=== PATIENT | female | born 1990 | race African-American/Black ===

== ENCOUNTER 2017-06-11 01:53 | Inpatient (IN) ==
[2017-06-11] MEDS ORDERED: Ipratropium/Albuterol Neb 3 ML IH ONE (02:06)
[2017-06-11] MEDS ORDERED: predniSONE 20 MG TABLET PO ONE (02:06)
[2017-06-11] MEDS ORDERED: 0.9 % Sodium Chloride 1,000 ML IVC ONE (02:07)
--- NOTE | 2017-06-11 02:11 | Emergency Department Note ---
Disposition Clinical Impression: Acute respiratory distress Asthma with exacerbation Qualifiers: Asthma severity: unspecified severity Asthma persistence: unspecified Qualified Code(s): J45.901 - Unspecified asthma with (acute) exacerbation Pneumonia Qualifiers: Pneumonia type: due to unspecified organism Laterality: right Lung location: unspecified part of lung Qualified Code(s): J18.9 - Pneumonia, unspecified organism Disposition: Admitted As Inpatient Condition: Undetermined Forms: ED Satisfaction Letter Time of Disposition: 04:09 Asthma HPI - General Chief Complaint: ED Asthma Stated Complaint: "Asthma Attack" Time Seen by Provider: 06/11/17 02:00 Source: patient, family Mode of arrival: EMS Limitations: no limitations Nursing Notes Reviewed: Yes Vital Signs Reviewed: Yes - History of Present Illness HPI Narrative: 26-year-old female with extensive history of asthma arrives to [facility] emergency department complaining of difficulty breathing. The patient states that she has been intubated for asthma in the past and has been in the ICU. The patient states that she has had upper respiratory infection cough from her daughter a few days ago. She states that she has acutely worsened over the course of the past 24 hours. The patient states she has used 2 breathing treatments prior to arrival. In addition EMS was called to her house and it was noted that the patient received 2 albuterol breathing treatments prior to arrival. She is tachypneic in the room and wheezing on auscultation. She is mildly hypoxic on room air with an O2 saturation of 89-91% . The patient admits to a large amount of back pain from coughing and her tachypnea over the course of the past few days. She denies any other complaints at this time. Pt Subjective Complaint: "asthma attack", shortness of breath Onset (ago): hour(s) (4) Severity: moderate, similar to prior, worse than usual Context: recent URI Associated symptoms: Reports: none Asthma History: history of frequent attacks, previously intubated Treatments Prior to Arrival: inhaled bronchodilator - Related Data Current Asthma Therapy: inhaled bronchodilator Home Medications Medication Instructions Recorded Confirmed Albuterol Sulfate [Albuterol 2 puff IH Q4-6H PRN 04/05/17 04/05/17 Inhaler] Beclomethasone Diprop 40mcg [QVAR 2 puff IH BID 04/05/17 04/05/17 40 mcg] Previous Rx's Medication Instructions Recorded Doxycycline 100 mg PO BID #14 capsule 04/08/17 Montelukast [Singulair] 10 mg PO HS #30 tablet 04/08/17 Nicotine Patch [Nicoderm] 14 mg TD Q24H patch.td24 04/08/17 PredniSONE [Deltasone] 40 mg PO DAILY #10 tablet 04/08/17 Allergies Allergy/AdvReac Type Severity Reaction Status Date / Time No Known Allergies Allergy Verified 06/11/17 02:00 All systems ED: reviewed and negative except as stated. Constitutional: Denies: fever, chills, weakness ENT ED: Denies: congestion Cardiovascular: Denies: chest pain Respiratory: Reports: dyspnea, wheezes Gastrointestinal: Denies: abdominal pain Genitourinary: Denies: urgency, dysuria Musculoskeletal: Reports: back pain. 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 - Social History Smoking Status: Current some day smoker Alcohol use: Reports: none Drug use: Reports: none Physical Exam - General Limitations: no limitations General appearance: alert, in distress (Respiratory distress) - Head Head exam: atraumatic, normocephalic, normal inspection - Eye Eye exam: Present: normal appearance, PERRL, EOMI - ENT ENT exam: normal exam, normal oropharynx, mucous membranes moist - Neck Neck exam: Present: normal inspection, full ROM, trachea midline - Chest Chest inspection: Present: normal inspection, symmetric chest wall rise - Respiratory Respiratory exam: Present: respiratory distress, wheezes, accessory muscle use - Expanded Respiratory Exam Location: wheezes: Left, Right, Upper, Lower - Cardiovascular Cardiovascular exam: Present: normal rhythm, tachycardia, normal heart sounds - Abdominal Exam Abdominal exam: Present: soft, Non-Tender. Absent: tenderness, distention, guarding, rebound, rigidity - Extremities Exam Extremities exam: Present: normal inspection, full ROM. Absent: tenderness, pedal edema Course Vital Signs Temperature 99.2 F 06/11/17 01:57 Pulse Rate 122 06/11/17 01:57 Respiratory Rate 18 06/11/17 01:57 Blood Pressure 135/90 06/11/17 01:57 O2 Sat by Pulse Oximetry 96 06/11/17 01:57 Temperature 99.2 F 06/11/17 01:57 Pulse Rate 122 06/11/17 03:23 Respiratory Rate 36 06/11/17 03:23 Blood Pressure 139/98 06/11/17 03:23 O2 Sat by Pulse Oximetry 95 06/11/17 03:23 Oxygen Delivery Oxygen Delivery Nasal Cannula Asthma - MDM Narrative Medical decision making narrative: Patient's workup here in the emergency department demonstrates a right perihilar infiltrate consistent with early pneumonia. The patient was in respiratory distress upon arrival but received 3 DuoNeb, steroids, magnesium the patient is resting comfortably at this time. The patient will be admitted to the hospitalist for further care and workup. Patient was accepted by Dr. Guadalupe. She is resting comfortably at this time. She is wearing nasal cannula oxygen and has been doing well on this. This is primarily for her own comfort. She is having no hypoxia at this time. - Medical Records Medical records reviewed: Yes I reviewed the patient's medical records. - Lab Data Lab results reviewed: Yes I reviewed the patient's lab results. Result diagrams: 06/11/17 03:17 06/11/17 03:17 Lab Results 06/11/17 06/11/17 Range/Units 03:17 03:17 WBC 17.1 H (4.3-11.1) K/mcL RBC 4.13 (3.82-4.97) M/mcL Hgb 13.1 (11.5-15.4) g/dL Hct 39.6 (35.3-44.9) % MCV 95.9 (83.0-100.0) fL MCH 31.7 (28.0-33.3) pg MCHC 33.1 (31.6-35.5) g/dL RDW 13.2 (11.5-14.5) % Plt Count 289 (140-400) K/mcL MPV 9.4 (9.4-12.4) fL Immature Gran % 0.2 (0-4) % Seg Neutrophils % 83.0 % Lymphocytes % 7.2 % Monocytes % 4.8 % Eosinophils % 4.3 % Basophils % 0.5 % Neutrophils # 14.2 H (1.6-8.9) K/mcL Lymphocytes # 1.2 (0.6-4.6) K/mcL Monocytes # 0.8 (0.0-1.3) K/mcL Eosinophils # 0.7 H (0.0-0.6) K/mcL Basophils # 0.1 (0.0-0.2) K/mcL Immature Plt Fraction 2.4 (1.1-6.1) % Sodium 136 (136-145) mEq/L Potassium 3.4 L (3.5-4.5) mEq/L Chloride 104 (98-109) mEq/L Carbon Dioxide 23 (19-29) mEq/L BUN 7 (7-20) mg/dL Creatinine 0.92 (0.57-1.11) mg/dL Est GFR ( Amer) > 60 (> 60) Est GFR (Non-Af Amer) > 60 (> 60) BUN/Creatinine Ratio 8 (6-26) Glucose 94 (70-99) mg/dL Calculated Osmolality 280 (280-300) Calcium 8.8 (8.6-10.8) mg/dL - Radiology Data Radiology results reviewed: Yes I reviewed the patient's radiology results.
[2017-06-11] MEDS ORDERED: cefTRIAXone 1,000 MG in Water for inj. (sterile) 10 ML IVP ONE (02:47)
--- NOTE | 2017-06-11 03:04 | Emergency Department Note ---
START Narrative - START START: I examined this patient and my medical decision-making was reviewed with the Resident Physician. I agree with the documented findings, disposition and treatment plan as described except to the extent set forth below. 26 year old kasi with HX of asthma and has been intubated in the past for acute respiratory distres presents ot the ED with complaints of shortness of breath and chest pain and states that she feels as though her asthma has been excerbated. She recieved 2 albuterol treatments in route with audible wheezing on exam and a inital pulse of 89%. WE have placed her on 2LNC and will admit to medicine seconday to early start of pnuemonia.
[2017-06-11 03:24] LABS: Basophils # 0.1 K/mcL (0.0-0.2); Basophils % 0.5 %; Eosinophils # 0.7 K/mcL (0.0-0.6); Eosinophils % 4.3 %; Hematocrit 39.6 % (35.3-44.9); Hemoglobin 13.1 g/dL (11.5-15.4); Immature Granulocytes % 0.2 % (0-4); Immature Platelets 2.4 % (1.1-6.1); Lymphocytes # 1.2 K/mcL (0.6-4.6); Lymphocytes % 7.2 %; Mean Corpuscular HGB Conc 33.1 g/dL (31.6-35.5); Mean Corpuscular Hemoglobin 31.7 pg (28.0-33.3); Mean Corpuscular Volume 95.9 fL (83.0-100.0); Mean Platelet Volume 9.4 fL (9.4-12.4); Monocytes # 0.8 K/mcL (0.0-1.3); Monocytes % 4.8 %; Neutrophils # 14.2 K/mcL (1.6-8.9); Platelet Count 289 K/mcL (140-400); Red Blood Count 4.13 M/mcL (3.82-4.97); Red Cell Distribution Width 13.2 % (11.5-14.5)
[2017-06-11 03:38] LABS: BUN/Creatinine Ratio 8 (6-26); Blood Urea Nitrogen 7 mg/dL (7-20); Calcium 8.8 mg/dL (8.6-10.8); Carbon Dioxide 23 mEq/L (19-29); Chloride 104 mEq/L (98-109); Glucose 94 mg/dL (70-99); Osmolality,Calculated 280 (280-300); Potassium 3.4 mEq/L (3.5-4.5); Sodium 136 mEq/L (136-145); eGFR For African Americans > 60 (> 60); eGFR For Non-African Americans > 60 (> 60)
--- NOTE | 2017-06-11 04:32 | Internal Med History&Physical ---
<Miah Trejo - Last Filed: 06/11/17 05:45> Date of Encounter: 06/11/17 Time of Encounter: 04:30 Assessment and Plan (1) Acute asthma exacerbation Current visit: Yes Status: Acute History of exacerbation requiring intubation 2 years ago Clinically has significantly improved Likely etiology is pneumonia vs smoking vs environmental Patient now sating in low 90s, mildly tachypneic, HR down to 90s Duoneb q4 MARTIN Albuterol q2 PRN Solu-Medrol 80mg q8hrs Continuous cardiac and pulse ox monitoring Maintenance IVF We will continue to closely monitor throughout the day Qualifiers: Asthma severity: unspecified severity Asthma persistence: unspecified Qualified Code(s): J45.901 - Unspecified asthma with (acute) exacerbation (2) Pneumonia Current visit: Yes Status: Acute CXR shows hyperinflation with right perihilar infiltrate WBC 17.1 IV abx - Rocephin and Zithromax Sputum culture ordered See above Qualifiers: Pneumonia type: due to unspecified organism Laterality: right Lung location: middle lobe of lung Qualified Code(s): J18.1 - Lobar pneumonia, unspecified organism (3) Leukocytosis Current visit: Yes Status: Acute WBC 17.1, Likely from pneumonia and reactive from stress On Abx, See above Will recheck later today Qualifiers: Leukocytosis type: unspecified Qualified Code(s): D72.829 - Elevated white blood cell count, unspecified (4) Hypokalemia Current visit: Yes Status: Acute K 3.4. Likely d/t use of bronchodilators Given PO potassium one time dose Started on IVF with K Rechecking BMP today (5) Tobacco abuse Current visit: No Status: Chronic Smokes 0.5 PPD. Ordered nicotine patch and counseled on the importance of smoking cessation (6) DVT prophylaxis Current visit: No Status: Acute Heparin 5000 units BID Internal Medicine - H&P: HPI Chief complaint: shortness of breath Admitted From: Home Plans for Post Hospital Care: Home History of present illness: Ms. Gaitan is a very pleasant 26 year old female with a past medical history of asthma requiring recurrent hospitalizations who presents to the [facility] Emergency Department with a chief complaint of shortness of breath. She states that she has been having experiencing upper respiratory type symptoms with clear productive cough that has worsened over the last day. There is associated chest discomfort with back pain from her constant coughing. At home, she uses albuterol, singular and duoneb treatments as needed. She was started on Symbicort in March but has run out medication for "several weeks" now. Prior to her coming to the ED, she received two breathing treatments. On arrival to the ED, she is very tachypneic, hypoxic with labored breathing in tripod position. She was given Prednisone, duoneb x3, mag, IVF and one dose of cetriaxone. Initial labs demonstrate WBC 17.1, K 3.4 and Cr 0.92. CXR demonstrates hyperinflation of the lung camacho with right perihilar infiltrate consistent with early pneumonia.On evaluation, she is somnolent without labored breathing on NC O2 - sat 95%. She states that she smokes 0.5 PPD and has occasional EtOH. Previous heroine use. Most recent hospitalization was back in March where she was admitted for asthma exacerbation and discharged on 04/10/17. More importantly, EMR review shows asthma exacerbation requiring intubation and ICU stay during a 2015 hospitalization. We will admit patient and offer close monitoring and further intervention. Past Med Surg Social Fam HX - Past Medical History Medical history: asthma Psychiatric history: anxiety - Past Surgical History Surgical History: other - Social History Smoking Status: Current some day smoker Smokeless Tobacco Status: No Alcohol use: none Drug use: none - Family History Father Adopted: No Living Status: Still Living Hx Family Cardiac Disorders: No Hx Family Respiratory Disorders: Yes (ASTHMA) Hx Family Cancer: No Hx Family GI Disorders: No Hx Family Endocrine Disorder: No Hx Family Neuromuscular Disorders: No Hx Family Neurologic Disorders: No Hx Family HEENT Disorders: No Hx Family Autoimmune Disorders: No Internal Medicine - H&P: Meds Albuterol Sulfate [Albuterol Inhaler] 2 puff IH Q4-6H PRN 04/05/17 [History] Beclomethasone Diprop 40mcg [QVAR 40 mcg] 2 puff IH BID 04/05/17 [History] Doxycycline 100 mg PO BID #14 capsule 04/08/17 [Rx] Montelukast [Singulair] 10 mg PO HS #30 tablet 04/08/17 [Rx] Nicotine Patch [Nicoderm] 14 mg TD Q24H patch.td24 04/08/17 [Rx] PredniSONE [Deltasone] 40 mg PO DAILY #10 tablet 04/08/17 [Rx] 3 Allergy/AdvReac Type Severity Reaction Status Date / Time No Known Allergies Allergy Verified 06/11/17 02:00 All Systems PM: A 10-system review of systems was performed and is negative for pertinent findings except as documented above in the HPI. - Constitutional Constitutional: no fever(s) - EENT Eyes: no change in vision - Cardiovascular Cardiovascular ROS IM: dyspnea, dyspnea on exertion, palpitations, no lightheadedness - Respiratory Respiratory: as per HPI, cough, dyspnea, dyspnea on exertion, pain on inspiration, pain with cough (chest and back) - Gastrointestinal Gastrointestinal: no abdominal pain, no constipation, no diarrhea - Genitourinary Genitourinary: no dysuria - Musculoskeletal Musculoskeletal ROS IM: back pain, muscle cramps - Integumentary Integumentary IM: no erythema - Neurological Neurological ROS: no dizziness, no headache(s) - Psychiatric Psychiatric: no anxiety - Constitutional Vitals: Temp Pulse Resp BP Pulse Ox 99.2 F 124 32 145/89 95 06/11/17 01:57 06/11/17 04:17 06/11/17 04:17 06/11/17 04:17 06/11/17 04:17 General appearance: Present: cooperative, A&O X 3, no acute distress, answers questions appropriately - Head Head exam: Present: atraumatic, normocephalic - Eye Eye exam: Present: EOMI, conjuntiva pink, sclera anicteric - ENT ENT exam: Present: mucous membranes moist - Neck Neck exam general surgery: Present: supple, trachea midline - Respiratory Respiratory exam: Present: wheezes (coarse, diffuse). Absent: accessory muscle use, chest wall tenderness, respiratory distress - Cardiovascular Cardiovascular exam: Present: +S1, +S2, tachycardia - GI/Abdominal GI/Abdominal exam: Present: normal bowel sounds, soft. Absent: tenderness - Rectal Rectal exam: Present: deferred - Extremities Exam Extremities exam: Present: warm. Absent: calf tenderness, cyanotic, tenderness - Neurological Exam Neurological exam: Present: alert, no focal deficits. Absent: speech deficit - Psychiatric Psychiatric exam: Present: normal affect, normal mood - Skin Skin exam: Absent: cyanosis Internal Med - H&P Results - Labs CBC & Chem 7: 06/11/17 03:17 06/11/17 03:17 <Henry Guadalupe - Last Filed: 06/11/17 06:19> Date of Encounter: 06/11/17 - Constitutional Constitutional: no chills, no fever(s), no night sweats - EENT Ears: no ear pain, no tinnitus Nose, mouth and throat: nasal congestion, nasal discharge, sinus pressure, no sore throat - Cardiovascular Cardiovascular ROS IM: dyspnea, dyspnea on exertion, no chest pain - Respiratory Respiratory: cough, dyspnea, dyspnea on exertion, pain with cough, no hemoptysis , no excessive phlegm production, no change in phlegm color - Gastrointestinal Gastrointestinal: no fecal incontinence - Genitourinary Genitourinary: no hematuria - Musculoskeletal Musculoskeletal ROS IM: back pain, no arthralgias - Integumentary Integumentary IM: no rash, no jaundice - Neurological Neurological ROS: no focal weakness, no frequent falls, no headache(s) - Psychiatric Psychiatric: no anxiety - Endocrine Endocrine IM: no polydipsia, no polyuria - Hematologic/Lymphatic Hematologic/Lymphatic: no lymphadenopathy - Allergic/Immunologic Allergic/Immunologic: wheezing, no uticaria, no GI upset with certain foods - Constitutional Vitals: Temp Pulse Resp BP Pulse Ox 98.9 F 119 26 145/89 91 06/11/17 05:08 06/11/17 05:08 06/11/17 05:08 06/11/17 05:08 06/11/17 05:08 General appearance: Present: cooperative, A&O X 3, no acute distress, answers questions appropriately Exam: patient with RR high teens/low twenties; no increased work of breathing now, resting comfortably. She reports feeling much better than initial presentation. - Head Head exam: Present: atraumatic, normal inspection - Eye Eye exam: Present: EOMI, PERRL. Absent: scleral icterus Pupils: Present: normal accommodation - ENT ENT exam: Present: normal exam - Neck Neck exam general surgery: Present: full ROM, supple. Absent: lymphadenopathy, tenderness - Respiratory Respiratory exam: Present: prolonged expiratory phase, rhonchi, wheezes. Absent : accessory muscle use, chest wall tenderness, rales, respiratory distress Additional comments: no respiratory distress now - Cardiovascular Cardiovascular exam: Present: RRR, +S1, +S2, tachycardia. Absent: diastolic murmur, systolic murmur - GI/Abdominal GI/Abdominal exam: Present: soft. Absent: hepatomegaly, splenomegaly, tenderness - Extremities Exam Extremities exam: Present: full ROM, normal capillary refill, warm, radial pulses palpable and symmetrical. Absent: joint swelling - Back Exam Back exam: Absent: CVA tenderness (L), CVA tenderness (R) - Neurological Exam Neurological exam: Present: alert, CN II-XII intact, oriented X3, no focal deficits - Psychiatric Psychiatric exam: Present: normal affect, normal mood - Skin Skin exam: Present: dry, warm. Absent: rash Internal Med - H&P Results - Labs CBC & Chem 7: 06/11/17 03:17 06/11/17 03:17 - Diagnostic Studies Chest x-ray Status: image reviewed by me (hyperinflated; right perihilar infiltrate noted) - Attending Attestation I discussed the patient AKIAK, PMH, ROS, lab data, and exam findings with Dr. Trejo. I then saw and examined patient independently as well. She, overall, feels much better than prior to her arrival. She started having symptoms roughly 24-30 hours ago. She has had ill contacts -- primarily her daughter. She also smokes about 1/2 PPD. We will treat her asthma aggressively with scheduled and PRN aerosols, IV steroids, and IV antibiotics for her pneumonia. Although she has elevated WBC and elevated HR and RR, she is not septic. She is well perfused. BP is stable. Her vitals are improving steadily since initial treatment for asthma exacerbation. We will watch her closely on telemetry and pulse oximetry. She needs to quit smoking and needs a PCP. She ran out of her meds and has not followed up. She continues to smoke, despite her asthma. Upon discharge, she will need referral for PCP, psychotherapist social worker, and probably pulmonary referral. Other than my above comments above and noted exam findings, I agree with Dr. Wright's assessment and plan.
[2017-06-11] MEDS ORDERED: Acetaminophen 325 MG TABLET PO PRN (05:14)
[2017-06-11] MEDS ORDERED: Naloxone 0.4 MG/ML INJ IVP PRN (05:14)
[2017-06-11] MEDS ORDERED: Albuterol 2.5 MG/3 ML NEBULIZER IH PRN (05:15)
[2017-06-11 05:36] LABS: Magnesium 2.6 mg/dL (1.6-2.6)
[2017-06-11] MEDS ORDERED: [UNRECOGNIZED DRUG - OTHER] IVC SCH (05:45)
[2017-06-11] MEDS: *HR* Heparin 5,000 UNIT/ML VIAL SQ SCH ×2 (05:51→18:24)
[2017-06-11] MEDS: Azithromycin 500 MG in D5% in Water 250 ML IVPB SCH (06:08)
[2017-06-11] MEDS: Ipratropium/Albuterol Neb 3 ML IH SCH ×6 (07:35→23:42)
[2017-06-11] MEDS: methylPREDNISolone 125 MG/2 ML VIAL IVP SCH ×3 (09:00→23:54)
[2017-06-11] MEDS: cefTRIAXone 1,000 MG in Water for inj. (sterile) 10 ML IVP SCH (09:01)
[2017-06-11] MEDS: Nicotine 14 MG PATCH.TD24 TD SCH (09:03)
[2017-06-11] MEDS: 0.9 % Sodium Chloride w KCl 20 MEQ/1,000 ML MLS IVC SCH ×2 (12:24→23:54)
[2017-06-11 12:33] LABS: BUN/Creatinine Ratio 8 (6-26); Blood Urea Nitrogen 7 mg/dL (7-20); Calcium 9.7 mg/dL (8.6-10.8); Carbon Dioxide 20 mEq/L (19-29); Chloride 108 mEq/L (98-109); Glucose 139 mg/dL (70-99); Osmolality,Calculated 282 (280-300); Potassium 4.3 mEq/L (3.5-4.5); Sodium 136 mEq/L (136-145); eGFR For African Americans > 60 (> 60); eGFR For Non-African Americans > 60 (> 60)
[2017-06-11 12:47] LABS: Basophils % 0.1 %; Eosinophils % 0.1 %; Hemoglobin 14.2 g/dL (11.5-15.4); Immature Granulocytes % 0.6 % (0-4); Immature Platelets 2.9 % (1.1-6.1); Lymphocytes # 0.6 K/mcL (0.6-4.6); Lymphocytes % 3.7 %; Mean Corpuscular HGB Conc 34.6 g/dL (31.6-35.5); Mean Corpuscular Volume 92.3 fL (83.0-100.0); Mean Platelet Volume 10.1 fL (9.4-12.4); Monocytes # 0.1 K/mcL (0.0-1.3); Monocytes % 0.5 %; Platelet Count 267 K/mcL (140-400); Red Blood Count 4.44 M/mcL (3.82-4.97); Red Cell Distribution Width 13.2 % (11.5-14.5)
[2017-06-11 12:48] LABS: Neutrophils # 14.5 K/mcL (1.6-8.9)
[2017-06-11 12:50] LABS: Platelet Clumps Few (Not Present); Platelet Estimate Normal (Normal)
--- NOTE | 2017-06-11 17:12 | Event Note ---
Date of Encounter: 06/11/17 Time of Encounter: 16:00 Patient is feeling better currently. She continues to have some wheezing and cough. We will continue treatment for asthma exacerbation with pneumonia. Continue current antibiotics. Continue bronchodilators. Continue steroids.
[2017-06-12] MEDS: Ipratropium/Albuterol Neb 3 ML IH SCH ×3 (04:16→09:07)
[2017-06-12] MEDS: Azithromycin 500 MG in D5% in Water 250 ML IVPB SCH (05:26)
[2017-06-12] MEDS: *HR* Heparin 5,000 UNIT/ML VIAL SQ SCH (05:32)
[2017-06-12] MEDS: methylPREDNISolone 125 MG/2 ML VIAL IVP SCH (08:19)
[2017-06-12] MEDS: Nicotine 14 MG PATCH.TD24 TD SCH (08:22)
[2017-06-12] MEDS: cefTRIAXone 1,000 MG in Water for inj. (sterile) 10 ML IVP SCH (08:22)
--- NOTE | 2017-06-12 10:55 | Discharge Summary ---
Date of Encounter: 06/12/17 Time of Encounter: 10:30 - Discharge Diagnosis (1) Acute asthma exacerbation Priority: Primary Status: Acute Qualifiers: Asthma severity: unspecified severity Asthma persistence: unspecified Qualified Code(s): J45.901 - Unspecified asthma with (acute) exacerbation (2) Hypokalemia Priority: Secondary Status: Acute (3) Pneumonia Priority: Secondary Status: Acute Qualifiers: Pneumonia type: due to unspecified organism Laterality: right Lung location: middle lobe of lung Qualified Code(s): J18.1 - Lobar pneumonia, unspecified organism (4) Tobacco abuse Priority: Secondary Status: Chronic (5) DVT prophylaxis Priority: Secondary Status: Acute - Discharge Medications Prescriptions: Albuterol Sulfate [Albuterol Inhaler] 2 puff IH Q4-6H PRN #1 inhaler PRN Reason: Shortness Of Breath Azithromycin [Zithromax] 500 mg PO DAILY #10 tablet Beclomethasone Diprop 40mcg [QVAR 40 mcg] 2 puff IH BID #1 inh Cefdinir [Omnicef] 300 mg PO BID #10 capsule predniSONE [PredniSONE] 40 mg PO DAILY #5 tablet Home Medications: Albuterol Sulfate [Albuterol Inhaler] 2 puff IH Q4-6H PRN #1 inhaler 06/12/17 [ Rx] Azithromycin [Zithromax] 500 mg PO DAILY #10 tablet 06/12/17 [Rx] Beclomethasone Diprop 40mcg [QVAR 40 mcg] 2 puff IH BID #1 inh 06/12/17 [Rx] Cefdinir [Omnicef] 300 mg PO BID #10 capsule 06/12/17 [Rx] predniSONE [PredniSONE] 40 mg PO DAILY #5 tablet 06/12/17 [Rx] Allergies/Adverse Reactions: 3 Allergy/AdvReac Type Severity Reaction Status Date / Time No Known Allergies Allergy Verified 06/11/17 02:00 Date of admission: 06/11/17 05:33 Primary care physician: PCP NONE Discharging clinician: Lesley Bear Anticipated date of discharge: 06/12/17 - Patient Status Disposition: Home, Self-Care Condition: Good Functional capacity at discharge: independent ambulation Overall status at discharge: patient is back to baseline - Discharge Instructions Instructions: Albuterol (By breathing), Beclomethasone (By breathing), Prednisone (By mouth), Azithromycin (By mouth), Cefdinir (By mouth), Asthma (DC) , Hypokalemia (DC), Pneumonia (DC) Follow Up With: Tabatha Eli DO [Resident] - 06/19/17 4:00 pm NONE,PCP [Primary Care Provider] - (F/u in residency clinic in 1 week) - Diet and Activity Activity: increase activity as tolerated Diet: low fat, low cholesterol, low salt diet Hospital course: Ms. Gaitan is a 26 year old female patient with a history of asthma who presented to ER with symptoms of acute asthma exacerbation. She was treated with bronchodilators and intravenous steroids. Chest x-ray also showed a right perihilar infiltrate concerning for early pneumonia. As such she was admitted here and treated with intravenous antibiotics. She has improved quickly with this treatment plan and is doing much better now. She is not requiring O2 supplementation and her lungs sound much better. She is eager to go home and is clinically stable to be discharged home today on oral antibiotics and short course of prednisone. She is advised to follow up with her PCP for further management of her asthma. I am giving her prescription for Qvar that she say she ran out of and has not been taking recently. She will also complete antibiotic treatment for her pneumonia with Omnicef and azithromycin. - Time Spent with Patient Total time spent providing and/or coordinating discharge services: Less than 30 minutes (25 min) - Constitutional Vitals: Temp Pulse Resp BP Pulse Ox 98.3 F 91 18 113/75 99 06/12/17 07:26 06/12/17 07:26 06/12/17 09:07 06/12/17 07:26 06/12/17 09:07 General appearance: Present: cooperative, A&O X 3, no acute distress, answers questions appropriately - Respiratory Respiratory exam: Present: CTAB. Absent: accessory muscle use, rales, rhonchi, wheezes - Cardiovascular Cardiovascular exam: Present: RRR, +S1, +S2. Absent: diastolic murmur, gallop, rubs, systolic murmur - GI/Abdominal GI/Abdominal exam: Present: normal bowel sounds, soft, no peritoneal signs. Absent: distended, tenderness - Extremities Exam Extremities exam: Present: warm, radial pulses palpable and symmetrical. Absent : calf tenderness, cyanotic, pedal edema
[2017-06-12 11:18] VITALS: BP 119/76
== END 2017-06-12 13:50 | disposition home or self-care (01) | DRG 141 ==
LOC: EMEROO 01:53 → 2NENU 01:53
PROVIDERS: ADMIT Pediatrics; ATTEND Internal Medicine

== ENCOUNTER 2017-06-21 05:46 | Observation (INO) ==
[2017-06-21] MEDS ORDERED: Ipratropium/Albuterol Neb 3 ML IH ONE (05:48)
[2017-06-21] MEDS ORDERED: methylPREDNISolone 125 MG/2 ML VIAL IVP ONE (05:48)
[2017-06-21] MEDS ORDERED: Albuterol Neb 7.5 MG, Sodium Chloride for inhalation 12 ML IH ONE (05:50)
[2017-06-21] MEDS ORDERED: Albuterol 2.5 MG/3 ML NEBULIZER ONE (05:57)
--- NOTE | 2017-06-21 06:13 | Emergency Department Note ---
Disposition Clinical Impression: Asthma exacerbation Qualifiers: Asthma severity: mild Asthma persistence: intermittent Qualified Code(s): J45.21 - Mild intermittent asthma with (acute) exacerbation Disposition: Admitted As Inpatient Condition: Good SOB HPI - General Chief Complaint: ED Shortness of Breath/Dyspnea Stated Complaint: difficulty in breathing Time Seen by Provider: 06/21/17 05:48 Source: EMS Nursing Notes Reviewed: Yes Vital Signs Reviewed: Yes - History of Present Illness Refer to notes from Dr. Esqueda and Dr. Calvillo for history of present illness, physical exam, medical decision-making and disposition. 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 - Social History Smoking Status: Current some day smoker Smokeless Tobacco Status: No Alcohol use: Reports: none Drug use: Reports: none Physical Exam - General General appearance: alert, in distress Course Vital Signs Temperature 98.0 F 06/21/17 05:47 Pulse Rate 114 06/21/17 05:47 Respiratory Rate 28 06/21/17 05:47 Blood Pressure 151/113 06/21/17 05:47 O2 Sat by Pulse Oximetry 99 06/21/17 05:47 Temperature 98.3 F 06/21/17 20:51 Pulse Rate 114 06/21/17 20:51 Respiratory Rate 18 06/21/17 20:51 Blood Pressure 127/75 06/21/17 20:51 O2 Sat by Pulse Oximetry 95 06/21/17 20:51 Oxygen Delivery Oxygen Delivery Room Air Shortness of Breath/Dyspnea - MDM Narrative Medical decision making narrative: Refer to the notes from Dr. Esqueda and Dr. Calvillo. - Lab Data Result diagrams: 06/21/17 06:05 06/21/17 06:05 Lab Results 06/21/17 06/21/17 06/21/17 Range/Units 06:05 06:05 06:05 WBC 13.8 H (4.3-11.1) K/mcL RBC 4.40 (3.82-4.97) M/mcL Hgb 14.0 (11.5-15.4) g/dL Hct 42.4 (35.3-44.9) % MCV 96.4 (83.0-100.0) fL MCH 31.8 (28.0-33.3) pg MCHC 33.0 (31.6-35.5) g/dL RDW 13.1 (11.5-14.5) % Plt Count 317 (140-400) K/mcL MPV 9.1 L (9.4-12.4) fL Immature Gran % 0.3 (0-4) % Seg Neutrophils % 65.5 % Lymphocytes % 15.9 % Monocytes % 6.2 % Eosinophils % 11.6 % Basophils % 0.5 % Neutrophils # 9.1 H (1.6-8.9) K/mcL Lymphocytes # 2.2 (0.6-4.6) K/mcL Monocytes # 0.9 (0.0-1.3) K/mcL Eosinophils # 1.6 H (0.0-0.6) K/mcL Basophils # 0.1 (0.0-0.2) K/mcL Sodium 138 (136-145) mEq/L Potassium 4.5 (3.5-4.5) mEq/L Chloride 105 (98-109) mEq/L Carbon Dioxide 23 (19-29) mEq/L BUN 8 (7-20) mg/dL Creatinine 0.84 (0.57-1.11) mg/dL Est GFR ( Amer) > 60 (> 60) Est GFR (Non-Af Amer) > 60 (> 60) BUN/Creatinine Ratio 10 (6-26) Glucose 102 H (70-99) mg/dL Calculated Osmolality 285 (280-300) Lactic Acid 0.6 (0.5-2.2) mmol/L Calcium 8.8 (8.6-10.8) mg/dL Troponin I (0-0.03) ng/mL B-Natriuretic Peptide (0-100) pg/mL 06/21/17 06/21/17 Range/Units 06:05 06:05 WBC (4.3-11.1) K/mcL RBC (3.82-4.97) M/mcL Hgb (11.5-15.4) g/dL Hct (35.3-44.9) % MCV (83.0-100.0) fL MCH (28.0-33.3) pg MCHC (31.6-35.5) g/dL RDW (11.5-14.5) % Plt Count (140-400) K/mcL MPV (9.4-12.4) fL Immature Gran % (0-4) % Seg Neutrophils % % Lymphocytes % % Monocytes % % Eosinophils % % Basophils % % Neutrophils # (1.6-8.9) K/mcL Lymphocytes # (0.6-4.6) K/mcL Monocytes # (0.0-1.3) K/mcL Eosinophils # (0.0-0.6) K/mcL Basophils # (0.0-0.2) K/mcL Sodium (136-145) mEq/L Potassium (3.5-4.5) mEq/L Chloride (98-109) mEq/L Carbon Dioxide (19-29) mEq/L BUN (7-20) mg/dL Creatinine (0.57-1.11) mg/dL Est GFR ( Amer) (> 60) Est GFR (Non-Af Amer) (> 60) BUN/Creatinine Ratio (6-26) Glucose (70-99) mg/dL Calculated Osmolality (280-300) Lactic Acid (0.5-2.2) mmol/L Calcium (8.6-10.8) mg/dL Troponin I 0.01 (0-0.03) ng/mL B-Natriuretic Peptide 56 (0-100) pg/mL - EKG Data EKG attestation: Yes I reviewed and interpreted this EKG. EKG results narrative: 5:51 Injury to the right 117 bpm, NJ interval 160 ms, QRS duration 70 ms, QT 294 ms, QTC 363 ms, normal axis. Sinus tachycardia with a mildly shortened NJ interval. There is no evidence of any ischemic ST changes on this electrocardiogram in comparison with a previous study performed on April 05, 2017. Attestation Statement - Attestation Attestation: I, Jayce Calvillo MD, personally evaluated this patient and discussed their management with the resident physician. I reviewed the resident's note and agree with the documented findings, medical decision making, and plan of care. Please refer to additional note from this visit.
[2017-06-21 06:16] LABS: Basophils # 0.1 K/mcL (0.0-0.2); Basophils % 0.5 %; Eosinophils # 1.6 K/mcL (0.0-0.6); Eosinophils % 11.6 %; Hematocrit 42.4 % (35.3-44.9); Immature Granulocytes % 0.3 % (0-4); Lymphocytes # 2.2 K/mcL (0.6-4.6); Lymphocytes % 15.9 %; Mean Corpuscular Hemoglobin 31.8 pg (28.0-33.3); Mean Corpuscular Volume 96.4 fL (83.0-100.0); Mean Platelet Volume 9.1 fL (9.4-12.4); Monocytes # 0.9 K/mcL (0.0-1.3); Monocytes % 6.2 %; Neutrophils # 9.1 K/mcL (1.6-8.9); Platelet Count 317 K/mcL (140-400); Red Cell Distribution Width 13.1 % (11.5-14.5); Segmented Neutrophils % 65.5 %
[2017-06-21 06:32] LABS: BUN/Creatinine Ratio 10 (6-26); Blood Urea Nitrogen 8 mg/dL (7-20); Calcium 8.8 mg/dL (8.6-10.8); Carbon Dioxide 23 mEq/L (19-29); Chloride 105 mEq/L (98-109); Glucose 102 mg/dL (70-99); Osmolality,Calculated 285 (280-300); Potassium 4.5 mEq/L (3.5-4.5); Sodium 138 mEq/L (136-145); eGFR For African Americans > 60 (> 60); eGFR For Non-African Americans > 60 (> 60)
--- NOTE | 2017-06-21 06:53 | Emergency Department Note ---
Disposition Clinical Impression: Asthma exacerbation Qualifiers: Asthma severity: mild Asthma persistence: intermittent Qualified Code(s): J45.21 - Mild intermittent asthma with (acute) exacerbation Disposition: Admitted As Inpatient Condition: Good SOB HPI - General Chief Complaint: ED Shortness of Breath/Dyspnea Stated Complaint: difficulty in breathing Time Seen by Provider: 06/21/17 05:48 Source: EMS Mode of arrival: ambulatory Limitations: no limitations Nursing Notes Reviewed: Yes Vital Signs Reviewed: Yes - History of Present Illness Pt presents for wheezing and respiratory distress that started last night. Initial history hard to get 2/2 distress. Pt responded after initial 3 duonebs with mild improvement in wheezing. Admitted with asthma exacerbation and early pneumonia with an increased white count. Patient was given antibiotics and breathing treatments. Patient improved in the hospital but was sent home with medications that she could not afford. The patient did not take any of these medications secondary to cost. Patient's symptoms did overall improved and resolved until this started yesterday. Symptoms started yesterday she was outside in the cold and a verbal argument. She was crying and then decided to smoke the first cigarette she has smoked since her last admission. She took her ipratropium but was out of all of her other meds including albuterol. Patient states that with her wheezing she had a cough but her cough has been nonproductive in nature. At this point the patient has improved significantly over the last hour since her arrival. The patient will be further observed in the emergency department and possibly admitted. She has been signed out to Dr. Lee and Dr. Nash. 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 ), wheezes - Cardiovascular Cardiovascular exam: Present: normal rhythm, tachycardia - Abdominal Exam Abdominal exam: Present: soft, Non-Tender - Extremities Exam Extremities exam: Present: normal inspection. Absent: tenderness - Back Exam Back exam: Present: normal inspection - Neurological Exam Neurological exam: Present: alert, oriented X3, CN II-XII intact - Psychiatric Psychiatric exam: Present: normal affect, normal mood - Skin Skin exam: Present: warm, dry, intact Course - Consultations Consultation #1: Discussed with Dr. Garay. Patient accepted for admission. Vital Signs Temperature 98.0 F 06/21/17 05:47 Pulse Rate 114 06/21/17 05:47 Respiratory Rate 28 06/21/17 05:47 Blood Pressure 151/113 06/21/17 05:47 O2 Sat by Pulse Oximetry 99 06/21/17 05:47 Temperature 98.3 F 06/21/17 20:51 Pulse Rate 114 06/21/17 20:51 Respiratory Rate 18 06/21/17 20:51 Blood Pressure 127/75 06/21/17 20:51 O2 Sat by Pulse Oximetry 95 06/21/17 20:51 Oxygen Delivery Oxygen Delivery Room Air Shortness of Breath/Dyspnea - Lab Data Result diagrams: 06/21/17 06:05 06/21/17 06:05 Lab Results 06/21/17 06/21/17 06/21/17 Range/Units 06:05 06:05 06:05 WBC 13.8 H (4.3-11.1) K/mcL RBC 4.40 (3.82-4.97) M/mcL Hgb 14.0 (11.5-15.4) g/dL Hct 42.4 (35.3-44.9) % MCV 96.4 (83.0-100.0) fL MCH 31.8 (28.0-33.3) pg MCHC 33.0 (31.6-35.5) g/dL RDW 13.1 (11.5-14.5) % Plt Count 317 (140-400) K/mcL MPV 9.1 L (9.4-12.4) fL Immature Gran % 0.3 (0-4) % Seg Neutrophils % 65.5 % Lymphocytes % 15.9 % Monocytes % 6.2 % Eosinophils % 11.6 % Basophils % 0.5 % Neutrophils # 9.1 H (1.6-8.9) K/mcL Lymphocytes # 2.2 (0.6-4.6) K/mcL Monocytes # 0.9 (0.0-1.3) K/mcL Eosinophils # 1.6 H (0.0-0.6) K/mcL Basophils # 0.1 (0.0-0.2) K/mcL Sodium 138 (136-145) mEq/L Potassium 4.5 (3.5-4.5) mEq/L Chloride 105 (98-109) mEq/L Carbon Dioxide 23 (19-29) mEq/L BUN 8 (7-20) mg/dL Creatinine 0.84 (0.57-1.11) mg/dL Est GFR ( Amer) > 60 (> 60) Est GFR (Non-Af Amer) > 60 (> 60) BUN/Creatinine Ratio 10 (6-26) Glucose 102 H (70-99) mg/dL Calculated Osmolality 285 (280-300) Lactic Acid 0.6 (0.5-2.2) mmol/L Calcium 8.8 (8.6-10.8) mg/dL Troponin I (0-0.03) ng/mL B-Natriuretic Peptide (0-100) pg/mL 06/21/17 06/21/17 Range/Units 06:05 06:05 WBC (4.3-11.1) K/mcL RBC (3.82-4.97) M/mcL Hgb (11.5-15.4) g/dL Hct (35.3-44.9) % MCV (83.0-100.0) fL MCH (28.0-33.3) pg MCHC (31.6-35.5) g/dL RDW (11.5-14.5) % Plt Count (140-400) K/mcL MPV (9.4-12.4) fL Immature Gran % (0-4) % Seg Neutrophils % % Lymphocytes % % Monocytes % % Eosinophils % % Basophils % % Neutrophils # (1.6-8.9) K/mcL Lymphocytes # (0.6-4.6) K/mcL Monocytes # (0.0-1.3) K/mcL Eosinophils # (0.0-0.6) K/mcL Basophils # (0.0-0.2) K/mcL Sodium (136-145) mEq/L Potassium (3.5-4.5) mEq/L Chloride (98-109) mEq/L Carbon Dioxide (19-29) mEq/L BUN (7-20) mg/dL Creatinine (0.57-1.11) mg/dL Est GFR ( Amer) (> 60) Est GFR (Non-Af Amer) (> 60) BUN/Creatinine Ratio (6-26) Glucose (70-99) mg/dL Calculated Osmolality (280-300) Lactic Acid (0.5-2.2) mmol/L Calcium (8.6-10.8) mg/dL Troponin I 0.01 (0-0.03) ng/mL B-Natriuretic Peptide 56 (0-100) pg/mL Attestation Statement - Attestation Attestation: I, Jayce Calvillo MD, personally evaluated this patient and discussed their management with the resident physician. I reviewed the resident's note and agree with the documented findings, medical decision making, and plan of care. 26-year-old female with history of asthma presents to the emergency department complaining of wheezing and shortness of breath which started several hours prior to arrival. Patient was just in the hospital last week for her asthma and early pneumonia. She states that after going home her symptoms resolved and she was doing fine until tonight. She was out in the cold earlier tonight and got into an argument and was upset and crying. She also smokes cigarettes. She then developed wheezing and increased shortness of breath. She has been using ipratropium in her nebulizer but states she is out of her albuterol. There has been some cough. No fever. On examination patient is a well-developed well-nourished female in moderate respiratory distress. She is alert. Patient sitting upright with a nonrebreather mask on arrival. Oxygen saturations in the upper 90s. She is not diaphoretic. Breath sounds are markedly decreased bilaterally with diffuse tight bilateral inspiratory and expiratory wheezes. Heart tachycardic and regular. Abdomen soft with normal bowel sounds. Patient received DuoNeb treatments, Solu-Medrol, and continuous albuterol treatment. She did have clinical improvement and states that she feels about 90 % better. On auscultation of the lungs she has increased air movement and her wheezes have improved but she continues to have inspiratory and expiratory wheezes. The hospitalist, Dr. Garay, was consulted and accepted admission of the patient.
--- NOTE | 2017-06-21 07:15 | Emergency Department Note ---
Disposition Clinical Impression: Asthma exacerbation Disposition: Admitted As Inpatient Condition: Good General Adult HPI - General Chief complaint: ED Shortness of Breath/Dyspnea Stated complaint: difficulty in breathing Time Seen by Provider: 06/21/17 05:48 Source: EMS Mode of arrival: ambulatory Limitations: no limitations - History of Present Illness Pain Scale: 3 - Related Data Previous Rx's Medication Instructions Recorded Albuterol Sulfate [Albuterol 2 puff IH Q4-6H PRN #1 inhaler 06/12/17 Inhaler] Beclomethasone Diprop 40mcg [QVAR 2 puff IH BID #1 inh 06/12/17 40 mcg] Allergies Allergy/AdvReac Type Severity Reaction Status Date / Time No Known Allergies Allergy Verified 06/21/17 11:09 Respiratory: Reports: cough, dyspnea, wheezes Past Medical History - Past Medical History Medical history: Reports: asthma Surgical history: Reports: other Psychiatric history: Reports: anxiety 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 - Social History Smoking Status: Current some day smoker Smokeless Tobacco Status: No Alcohol use: Reports: none Drug use: Reports: none Physical Exam - General Limitations: no limitations General appearance: alert, in distress Course Vital Signs Temperature 98.0 F 06/21/17 05:47 Pulse Rate 114 06/21/17 05:47 Respiratory Rate 28 06/21/17 05:47 Blood Pressure 151/113 06/21/17 05:47 O2 Sat by Pulse Oximetry 99 06/21/17 05:47 Temperature 98.3 F 06/21/17 12:37 Pulse Rate 116 06/21/17 12:37 Respiratory Rate 18 06/21/17 12:37 Blood Pressure 117/80 06/21/17 12:37 O2 Sat by Pulse Oximetry 97 06/21/17 12:37 Oxygen Delivery Oxygen Delivery Room Air Medical Decision Making - Lab Data Result diagrams: 06/21/17 06:05 06/21/17 06:05 Lab Results 06/21/17 06/21/17 06/21/17 Range/Units 06:05 06:05 06:05 WBC 13.8 H (4.3-11.1) K/mcL RBC 4.40 (3.82-4.97) M/mcL Hgb 14.0 (11.5-15.4) g/dL Hct 42.4 (35.3-44.9) % MCV 96.4 (83.0-100.0) fL MCH 31.8 (28.0-33.3) pg MCHC 33.0 (31.6-35.5) g/dL RDW 13.1 (11.5-14.5) % Plt Count 317 (140-400) K/mcL MPV 9.1 L (9.4-12.4) fL Immature Gran % 0.3 (0-4) % Seg Neutrophils % 65.5 % Lymphocytes % 15.9 % Monocytes % 6.2 % Eosinophils % 11.6 % Basophils % 0.5 % Neutrophils # 9.1 H (1.6-8.9) K/mcL Lymphocytes # 2.2 (0.6-4.6) K/mcL Monocytes # 0.9 (0.0-1.3) K/mcL Eosinophils # 1.6 H (0.0-0.6) K/mcL Basophils # 0.1 (0.0-0.2) K/mcL Sodium 138 (136-145) mEq/L Potassium 4.5 (3.5-4.5) mEq/L Chloride 105 (98-109) mEq/L Carbon Dioxide 23 (19-29) mEq/L BUN 8 (7-20) mg/dL Creatinine 0.84 (0.57-1.11) mg/dL Est GFR ( Amer) > 60 (> 60) Est GFR (Non-Af Amer) > 60 (> 60) BUN/Creatinine Ratio 10 (6-26) Glucose 102 H (70-99) mg/dL Calculated Osmolality 285 (280-300) Lactic Acid 0.6 (0.5-2.2) mmol/L Calcium 8.8 (8.6-10.8) mg/dL Troponin I (0-0.03) ng/mL B-Natriuretic Peptide (0-100) pg/mL 06/21/17 06/21/17 Range/Units 06:05 06:05 WBC (4.3-11.1) K/mcL RBC (3.82-4.97) M/mcL Hgb (11.5-15.4) g/dL Hct (35.3-44.9) % MCV (83.0-100.0) fL MCH (28.0-33.3) pg MCHC (31.6-35.5) g/dL RDW (11.5-14.5) % Plt Count (140-400) K/mcL MPV (9.4-12.4) fL Immature Gran % (0-4) % Seg Neutrophils % % Lymphocytes % % Monocytes % % Eosinophils % % Basophils % % Neutrophils # (1.6-8.9) K/mcL Lymphocytes # (0.6-4.6) K/mcL Monocytes # (0.0-1.3) K/mcL Eosinophils # (0.0-0.6) K/mcL Basophils # (0.0-0.2) K/mcL Sodium (136-145) mEq/L Potassium (3.5-4.5) mEq/L Chloride (98-109) mEq/L Carbon Dioxide (19-29) mEq/L BUN (7-20) mg/dL Creatinine (0.57-1.11) mg/dL Est GFR ( Amer) (> 60) Est GFR (Non-Af Amer) (> 60) BUN/Creatinine Ratio (6-26) Glucose (70-99) mg/dL Calculated Osmolality (280-300) Lactic Acid (0.5-2.2) mmol/L Calcium (8.6-10.8) mg/dL Troponin I 0.01 (0-0.03) ng/mL B-Natriuretic Peptide 56 (0-100) pg/mL Attestation Statement - Attestation Attestation: Care of patient assumed from Dr. Calvillo at 7 AM pending admission. Patient presented with cough, wheezing, dyspnea. She has a known history of asthma. She was recently admitted for asthma exacerbation and pneumonia. At the time of my exam she is sleeping with neb therapy ongoing. She is tachycardic but in no acute respiratory distress. I reviewed the patient's labs and portable chest x-ray. I will speak with the admitting hospitalist and arrange admission
--- NOTE | 2017-06-21 09:01 | Internal Med History&Physical ---
Date of Encounter: 06/21/17 Time of Encounter: 08:00 Assessment and Plan (1) Acute asthma exacerbation Current visit: No Status: Acute -Patient with inspiratory and expiratory wheezes but currently on room air and not requiring supplemental oxygen. -Chest x-ray showed no acute findings and labs were unremarkable. -Will continue DuoNeb's in addition to giving IV Solu-Medrol and monitor on pulse ox Qualifiers: Asthma severity: unspecified severity Asthma persistence: unspecified Qualified Code(s): J45.901 - Unspecified asthma with (acute) exacerbation (2) Tobacco abuse Current visit: No Status: Chronic -Discussed with patient smoking cessation. Internal Medicine - H&P: HPI Chief complaint: Shortness of breath Admitted From: Home Plans for Post Hospital Care: Home History of present illness: Patient is a 26-year-old female with past medical history significant for asthma and smoking who presents to the ER on 06/21/17 with shortness of breath. Patient reports of getting into an argument and became very emotional with increased anxiety and then experienced difficulty breathing. Patient reported of using her rescue inhaler with no relief in symptoms and was brought into the ER for evaluation. Patient has had 4 hospitalizations, including this one, in the last year for asthma exacerbation. In the ER, chest x-ray showed no acute findings and labs were unremarkable. On exam, patient did have inspiratory and expiratory wheezes but currently on room air and not requiring supplemental oxygen. Patient will be admitted to the medical surgical floor for asthma exacerbation. Past Med Surg Social Fam HX - Past Medical History Medical history: asthma Psychiatric history: anxiety - Past Surgical History Surgical History: other - Social History Smoking Status: Current some day smoker Smokeless Tobacco Status: No Alcohol use: none Drug use: none - Family History Father Adopted: No Living Status: Still Living Hx Family Cardiac Disorders: No Hx Family Respiratory Disorders: Yes (ASTHMA) Hx Family Cancer: No Hx Family GI Disorders: No Hx Family Endocrine Disorder: No Hx Family Neuromuscular Disorders: No Hx Family Neurologic Disorders: No Hx Family HEENT Disorders: No Hx Family Autoimmune Disorders: No Internal Medicine - H&P: Meds Albuterol Sulfate [Albuterol Inhaler] 2 puff IH Q4-6H PRN #1 inhaler 06/12/17 [ Rx] Azithromycin [Zithromax] 500 mg PO DAILY #10 tablet 11/30/17 [Rx] Beclomethasone Diprop 40mcg [QVAR 40 mcg] 2 puff IH BID #1 inh 06/12/17 [Rx] Cefdinir [Omnicef] 300 mg PO BID #10 capsule 06/12/17 [Rx] predniSONE [PredniSONE] 40 mg PO DAILY #5 tablet 06/12/17 [Rx] 3 Allergy/AdvReac Type Severity Reaction Status Date / Time No Known Allergies Allergy Verified 06/11/17 02:00 All Systems PM: A 10-system review of systems was performed and is negative for pertinent findings except as documented above in the HPI. - Constitutional Vitals: Temp Pulse Resp BP Pulse Ox 98.0 F 123 18 112/61 100 06/21/17 05:47 06/21/17 06:51 06/21/17 08:47 06/21/17 08:47 06/21/17 06:51 General appearance: Present: A&O X 3, no acute distress - Head Head exam: Present: normocephalic - Eye Eye exam: Present: normal appearance - ENT ENT exam: Present: mucous membranes dry, mucous membranes moist - Respiratory Respiratory exam: Present: wheezes (Inspiratory and expiratory wheezes). Absent : accessory muscle use, decreased breath sounds, respiratory distress, tachypnea - Cardiovascular Cardiovascular exam: Present: RRR, +S1, +S2. Absent: diastolic murmur, gallop, rubs, systolic murmur - GI/Abdominal GI/Abdominal exam: Present: normal bowel sounds, soft, no peritoneal signs. Absent: distended, tenderness - Extremities Exam Extremities exam: Absent: pedal edema - Neurological Exam Neurological exam: Present: oriented X3, no focal deficits - Psychiatric Psychiatric exam: Present: normal mood - Skin Skin exam: Present: normal color Internal Med - H&P Results - Labs CBC & Chem 7: 06/21/17 06:05 06/21/17 06:05
[2017-06-21] MEDS ORDERED: Naloxone 0.4 MG/ML INJ IVP PRN (09:08)
[2017-06-21] MEDS: Ipratropium/Albuterol Neb 3 ML IH SCH ×4 (11:03→23:04)
[2017-06-21 15:29] LABS: Amphetamine Screen,Urine Positive ng/mL (Cutoff=1000); Barbiturate Screen,Urine Negative ng/mL (Cutoff=200); Benzodiazepines Screen,Urine Negative ng/mL (Cutoff=200); Cannabinoid Screen,Urine Negative ng/mL (Cutoff = 50); Cocaine Screen,Urine Positive ng/mL (Cutoff= 300); Opiate Screen,Urine Positive ng/mL (Cutoff=300); Phencyclidine Screen,Urine Negative ng/mL (Cutoff=25)
[2017-06-21] MEDS: methylPREDNISolone 125 MG/2 ML VIAL IVP SCH (17:23)
[2017-06-22] MEDS: Ipratropium/Albuterol Neb 3 ML IH SCH ×6 (03:44→23:46)
[2017-06-22] MEDS: methylPREDNISolone 125 MG/2 ML VIAL IVP SCH ×2 (05:37→16:48)
[2017-06-22 06:20] LABS: Basophils % 0.1 %; Hematocrit 40.8 % (35.3-44.9); Hemoglobin 13.4 g/dL (11.5-15.4); Immature Granulocytes % 0.6 % (0-4); Lymphocytes # 0.8 K/mcL (0.6-4.6); Lymphocytes % 3.6 %; Mean Corpuscular HGB Conc 32.8 g/dL (31.6-35.5); Mean Corpuscular Hemoglobin 31.8 pg (28.0-33.3); Mean Corpuscular Volume 96.7 fL (83.0-100.0); Mean Platelet Volume 9.7 fL (9.4-12.4); Monocytes # 0.9 K/mcL (0.0-1.3); Monocytes % 4.2 %; Neutrophils # 20.4 K/mcL (1.6-8.9); Platelet Count 322 K/mcL (140-400); Red Blood Count 4.22 M/mcL (3.82-4.97); Red Cell Distribution Width 13.4 % (11.5-14.5); Segmented Neutrophils % 91.5 %
[2017-06-22 06:24] LABS: BUN/Creatinine Ratio 12 (6-26); Blood Urea Nitrogen 10 mg/dL (7-20); Calcium 9.3 mg/dL (8.6-10.8); Carbon Dioxide 24 mEq/L (19-29); Chloride 103 mEq/L (98-109); Glucose 131 mg/dL (70-99); Osmolality,Calculated 285 (280-300); Potassium 4.7 mEq/L (3.5-4.5); Sodium 137 mEq/L (136-145); eGFR For African Americans > 60 (> 60); eGFR For Non-African Americans > 60 (> 60)
--- NOTE | 2017-06-22 12:45 | Internal Med Progress Note ---
<Oma Fitch - Last Filed: 06/22/17 13:14> Date of Encounter: 06/22/17 Time of Encounter: 12:09 - Assessment and plan (1) Acute asthma exacerbation Current Visit: No Status: Acute Assessment and plan: Patient presenetd with acute dyspnea responsive to albuterol inhaler. Recently hospitalized from 06/11-06/12 for same. Discharged with albuterol, azithromycin for 5 day course, qvar, omnicef and prednisone. Patient never picked up any of those prescriptions as she could not afford medications. Chest xray in ER with no evidence of acute cardiopulmonary process. Will treat for acute asthma exacerbation - likely secondary to lack of medications and poor compliance. Will continue treatment with albuterol every 4 hours. Will continue IV steroids, will plan to switch to oral steroids once clinical s= condition is more stable Patient was able to tlerate walk without desaturating, however her ehart rate increased greatly Continue supplemental oxygen as needed to keep SpO2 > 88% Social work consult for help with medications Qualifiers: Asthma severity: unspecified severity Asthma persistence: unspecified Qualified Code(s): J45.901 - Unspecified asthma with (acute) exacerbation (2) Leukocytosis Current Visit: No Status: Acute Assessment and plan: WBC on arrival 13.8, increased to 22.3 this morning Patient has been afebrile, do not feel that leukocytosis 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 Will continue to monitor, is becomes febrile will consider addition of antibiotic. Qualifiers: Leukocytosis type: unspecified Qualified Code(s): D72.829 - Elevated white blood cell count, unspecified (3) Sinus tachycardia Current Visit: Yes Status: Acute Assessment and plan: Patient has had persistent tachycardia, rates as high as 140s. Suspect is multifactorial - may be secondary to frequent albuterol use, hypoxia and suspect is also due to possible withdrawl/side effect as patient had UDS positive for multiple illicit substances (opiods, amphetamines, cocaine). Do not feel is secondary to infectious source, will not treat with antibiotics at this time, no need for blood culture Will continue to monitor (4) Polysubstance abuse Current Visit: No Status: Acute Assessment and plan: UDS in ER positive for opiods, amphetamines and cocaine - Subjective Interval history: 26 year old female admitted with acute asthma exacerbation. Was recently admitted from 06/11-06/12 for same and discharged with albuterol, azithromycin, qvar, omnicef and prednisone. Patient states that she was unable to obtain any of her medications due to cost and she did not fill any of those prescriptions. She represented to the emergency room last night with increased dyspnea that was non responsive to use of rescue inhaler. UDS positive for opiates, amphetamines and cocaine. She was subsequently admitted for further observation. Today she states that her breathing currently feels better. She is anxious to go home as she has to work today and states that if she remains here we need to call her work as if she misses any further days she will lose her job. She states that she plans to make sure she picks up her prescriptions when she is discharged. She is tolerating diet with no nausea or vomiting. She has no other concerns. - Constitutional Vitals: Temp Pulse Resp BP Pulse Ox 97.6 F 87 14 126/88 96 06/22/17 11:27 06/22/17 11:27 06/22/17 11:55 06/22/17 11:27 06/22/17 11:55 General appearance: Present: cooperative, A&O X 3, no acute distress, answers questions appropriately - Head Head exam: Present: atraumatic, normocephalic Additional comments: nasal canula in place - ENT ENT exam: Present: mucous membranes moist - Neck Neck exam general surgery: Present: supple, trachea midline - Respiratory Respiratory exam: Present: wheezes (expiratory diffuse bilaterally ). Absent: accessory muscle use, rales, rhonchi Additional comments: good air movement bilaterally - Cardiovascular Cardiovascular exam: Present: +S1, +S2, tachycardia. Absent: diastolic murmur, gallop, rubs, systolic murmur - GI/Abdominal GI/Abdominal exam: Present: normal bowel sounds, soft. Absent: distended, guarding, rebound, tenderness - Extremities Exam Extremities exam: Present: normal capillary refill. Absent: pedal edema - Skin Skin exam: Present: dry, intact, warm Internal Medicine: Result - Labs CBC & Chem 7: 06/22/17 05:36 06/22/17 05:36 Labs: Short CBC 06/22/17 Range/Units 05:36 WBC 22.3 H D (4.3-11.1) K/mcL Hgb 13.4 (11.5-15.4) g/dL Hct 40.8 (35.3-44.9) % Plt Count 322 (140-400) K/mcL Neutrophils # 20.4 H (1.6-8.9) K/mcL BMP 06/22/17 05:36 Sodium 137 Potassium 4.7 H Chloride 103 Carbon Dioxide 24 BUN 10 Creatinine 0.86 Glucose 131 H Calcium 9.3 - Impressions Impressions Chest CTA 06/21/17 17:42 IMPRESSION: 1. No evidence of pulmonary embolism. 2. Evaluation of the pulmonary parenchyma limited by motion artifact. Small patchy ground-glass opacities are suspected in the left lower lobe, which could be related to an infectious or inflammatory process. D/ / 06/21/2017 18:50:43 Kleber Thomas MD / charles Interpreting Provider: Kleber Thomas MD - VTE Reasons for not Prescribing Prophylaxis: Treatment not Indicated - Low risk for VTE Consult Discharge Plan - Plan Referrals: NONE,PCP [Primary Care Provider] - <Juan J Lora - Last Filed: 06/22/17 13:38> Date of Encounter: 06/22/17 - Assessment and plan (1) Asthma exacerbation Current Visit: Yes Status: Acute Qualifiers: Asthma severity: mild Asthma persistence: intermittent Qualified Code(s) : J45.21 - Mild intermittent asthma with (acute) exacerbation (2) Sinus tachycardia Current Visit: Yes Status: Acute (3) Polysubstance abuse Current Visit: No Status: Acute (4) Tobacco abuse Current Visit: No Status: Chronic - Constitutional Vitals: Temp Pulse Resp BP Pulse Ox 97.6 F 87 14 126/88 96 06/22/17 11:27 06/22/17 11:27 06/22/17 11:55 06/22/17 11:27 06/22/17 11:55 Internal Medicine: Result - Labs CBC & Chem 7: 06/22/17 05:36 06/22/17 05:36 Labs: Short CBC 06/22/17 Range/Units 05:36 WBC 22.3 H D (4.3-11.1) K/mcL Hgb 13.4 (11.5-15.4) g/dL Hct 40.8 (35.3-44.9) % Plt Count 322 (140-400) K/mcL Neutrophils # 20.4 H (1.6-8.9) K/mcL BMP 06/22/17 05:36 Sodium 137 Potassium 4.7 H Chloride 103 Carbon Dioxide 24 BUN 10 Creatinine 0.86 Glucose 131 H Calcium 9.3 - Impressions Impressions Chest CTA 06/21/17 17:42 IMPRESSION: 1. No evidence of pulmonary embolism. 2. Evaluation of the pulmonary parenchyma limited by motion artifact. Small patchy ground-glass opacities are suspected in the left lower lobe, which could be related to an infectious or inflammatory process. D/ / 06/21/2017 18:50:43 Kleber Thomas MD / charles Interpreting Provider: Kleber Thomas MD - Attending Attestation I examined this patient and my medical decision-making was reviewed with the Resident Physician on 06/22/17. I agree with the documented findings, disposition and treatment plan as described except to the extent set forth below. Ms Gaitan is currently in observation for acute asthma exacerbation. She remains moderate to high risk due to potential for worsening respiratory status. Ms Gaitan is still having wheezing and tachycardia today. She is concerned about missing work. No fever or chills. Tachycardia worse with movement. Has had oxygen off and on today as well. Denies chest pain. Exam Alert. Mild resp distress at rest. Mucus membranes dry Heart tachy and regular no murmur Lungs with diffuse end exp wheeze No edema I/P 1. Acute asthma exac 2. Sinus tachy 3. Polysubstance abuse Further diagnoses and plan as above.
[2017-06-23] MEDS: Ipratropium/Albuterol Neb 3 ML IH SCH ×2 (03:27→08:01)
[2017-06-23] MEDS: methylPREDNISolone 125 MG/2 ML VIAL IVP SCH (05:53)
[2017-06-23 07:14] VITALS: BP 124/85
--- NOTE | 2017-06-23 08:30 | Discharge Summary ---
<Jayla Meehan - Last Filed: 06/23/17 09:11> Date of Encounter: 06/23/17 Time of Encounter: 08:31 - Discharge Diagnosis (1) Asthma exacerbation Priority: Primary Status: Resolved Qualifiers: Asthma severity: mild Asthma persistence: intermittent Qualified Code(s) : J45.21 - Mild intermittent asthma with (acute) exacerbation (2) Tobacco abuse Priority: Secondary Status: Chronic (3) Polysubstance abuse Priority: Secondary Status: Acute - Discharge Medications Prescriptions: Albuterol Sulfate [Albuterol Inhaler] 2 puff IH Q4-6H PRN #1 inhaler PRN Reason: Shortness Of Breath Beclomethasone Diprop 40mcg [QVAR 40 mcg] 2 puff IH BID #1 inh predniSONE [PredniSONE] See Taper PO TAPER #63 tablet Home Medications: Albuterol Sulfate [Albuterol Inhaler] 2 puff IH Q4-6H PRN #1 inhaler 06/23/17 [ Rx] Beclomethasone Diprop 40mcg [QVAR 40 mcg] 2 puff IH BID #1 inh 06/23/17 [Rx] predniSONE [PredniSONE] See Taper PO TAPER #63 tablet 06/23/17 [Rx] Allergies/Adverse Reactions: 3 Allergy/AdvReac Type Severity Reaction Status Date / Time No Known Allergies Allergy Verified 06/21/17 11:09 Procedures/tests Complete & Pending: Procedures Performed prior 72 hours Category Date Time Status CTA chest [CT angio chest] [CT] Stat Cat Scan 06/21/17 17:42 Completed Date of admission: 06/21/17 08:10 Primary care physician: PCP NONE Consults: 06/22/17 12:01 Consult to Wellness Rn [CONS] Routine Reason for SW Consult: need for help with medications Discharging clinician: Jayla Meehan Anticipated date of discharge: 06/23/17 - Patient Status Disposition: Home, Self-Care Condition: Good Functional capacity at discharge: independent ambulation Overall status at discharge: patient is progressing back to baseline - Discharge Instructions Instructions: Prednisone (By mouth) Follow Up With: NONE,PCP [Primary Care Provider] - Forms: Inpatient Work/School Release - Diet and Activity Activity: increase activity as tolerated, resume usual activities as tolerated Hospital course: Ms. Gaitan is a 26 year old female with PMH of asthma, tobacco abuse, and polysubstance abuse who presented to the ED for shortness of breath after getting into an argument and experiencing increased anxiety. Vital signs on admission were significant for tachycardia (HR 114), tachypnea (RR 28) with accessory muscle use, and HTN (151/113). CXR negative for acute findings. Labs were notable for initially elevated white count of 13.8 and a white count of 22.3 the following day, likely from inhaled steroid treatments. Additionally, urine toxicology screen was positive opiates, amphetamines, and cocaine. Over the course of her hospitalization, the patient it improve steadily and it was determined she was stable for discharge. On day of discharge, patient's lungs were clear and equal. Patient was discharged home with prescriptions for inhalers and a prednisone taper, she was encouraged to follow up with her PCP. Patient was counseled on importance of tobacco cessation as well as substance abuse cessation. - Time Spent with Patient Total time spent providing and/or coordinating discharge services: - Constitutional Vitals: Temp Pulse Resp BP Pulse Ox 98.2 F 93 18 124/85 90 06/23/17 07:12 06/23/17 07:12 06/23/17 07:12 06/23/17 07:12 06/23/17 07:12 General appearance: Present: cooperative, A&O X 3, no acute distress, answers questions appropriately - Head Head exam: Present: atraumatic, normocephalic - Neck Neck exam general surgery: Present: full ROM, supple - Respiratory Respiratory exam: Present: CTAB. Absent: accessory muscle use, stridor, wheezes - Cardiovascular Cardiovascular exam: Present: RRR, +S1, +S2. Absent: diastolic murmur - GI/Abdominal GI/Abdominal exam: Present: normal bowel sounds, soft. Absent: tenderness - Extremities Exam Extremities exam: Present: warm. Absent: pedal edema, tenderness - Neurological Exam Neurological exam: Present: oriented X3, no focal deficits - VTE Reasons for not Prescribing Prophylaxis: Treatment not Indicated - Low risk for VTE <Juan J Lora - Last Filed: 06/23/17 11:39> Date of Encounter: 06/23/17 - Discharge Diagnosis (1) Asthma exacerbation Status: Resolved Qualifiers: Asthma severity: mild Asthma persistence: intermittent Qualified Code(s) : J45.21 - Mild intermittent asthma with (acute) exacerbation (2) Sinus tachycardia Priority: Secondary Status: Resolved (3) Polysubstance abuse Status: Acute (4) Tobacco abuse Status: Chronic Procedures/tests Complete & Pending: Procedures Performed prior 72 hours Category Date Time Status CTA chest [CT angio chest] [CT] Stat Cat Scan 06/21/17 17:42 Completed Date of admission: 06/21/17 08:10 Primary care physician: PCP NONE Consults: 06/22/17 12:01 Consult to Wellness Rn [CONS] Routine Reason for SW Consult: need for help with medications Hospital course: Ms. Gaitan is a 26 year old female - Time Spent with Patient Total time spent providing and/or coordinating discharge services: 38min - Constitutional Vitals: Temp Pulse Resp BP Pulse Ox 98.2 F 93 18 124/85 90 06/23/17 07:12 06/23/17 07:12 06/23/17 07:12 06/23/17 07:12 06/23/17 09:35 - Attending Attestation I examined this patient and my medical decision-making was reviewed with the Resident Physician on 06/23/17. I agree with the documented findings, disposition and treatment plan as described except to the extent set forth below. Ms Gaitan has been admitted for acute exac asthma. She remained tachycardic yesterday and was continued here in hospital with IV steroids. She now feels nearly baseline. She is afebrile with stable vitals and heart rate is less than 100. She is ready for discharge home. Exam Alert. Comfortable Mucus membranes dry Heart reg - not tachy Scant end exp wheeze Plan D/C home today Off work till tomorrow Follow up with PCP. Steroid taper
--- NOTE | 2017-06-23 14:41 | Electrocardiograph Report ---
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
== END 2017-06-23 11:27 | disposition home or self-care (01) ==
LOC: EMEROO 05:46 → 2ANU 05:46 → SUATTDRO 08:10 → 2ANU 08:48
PROVIDERS: ADMIT Hospitalist; ATTEND Internal Medicine

== ENCOUNTER 2017-12-24 21:08 | Inpatient (IN) ==
[2017-12-24] MEDS ORDERED: Ipratropium/Albuterol Neb 3 ML IH ONE ×2 (21:16→22:30)
--- NOTE | 2017-12-24 21:20 | Emergency Department Note ---
Disposition Clinical Impression: Asthma exacerbation Qualifiers: Asthma severity: severe Asthma persistence: unspecified Qualified Code(s): J45.901 - Unspecified asthma with (acute) exacerbation Disposition: Admitted As Inpatient Condition: Good Time of Disposition: 22:21 SOB HPI - General Chief Complaint: ED Shortness of Breath/Dyspnea Stated Complaint: sob Time Seen by Provider: 12/24/17 21:13 Source: patient Mode of arrival: wheelchair Limitations: no limitations Nursing Notes Reviewed: Yes Vital Signs Reviewed: Yes - History of Present Illness Pt Subjective Complaint: shortness of breath, cough, "asthma attack" Onset (ago): day(s) Severity: severe Consistency/Duration: constant Improves with: bronchodilators Worsens with: coughing Known history of: asthma Associated symptoms: Reports: cough, wheezing Treatment prior to arrival: bronchodilator Cough present: Yes Cough Frequency: Intermittent - Related Data Home oxygen amount: none Home Medications Medication Instructions Recorded Confirmed No Known Home Drugs 12/24/17 12/24/17 Allergies Allergy/AdvReac Type Severity Reaction Status Date / Time No Known Allergies Allergy Verified 06/21/17 11:09 All systems ED: reviewed and negative except as stated. Constitutional: Reports: as per HPI Eyes: Reports: as per HPI ENT ED: Reports: as per HPI Cardiovascular: Reports: as per HPI Respiratory: Reports: cough, dyspnea, wheezes Gastrointestinal: Reports: as per HPI Genitourinary: Reports: as per HPI Musculoskeletal: Reports: as per HPI Integumentary: Reports: as per HPI Neurological: Reports: as per HPI Psychiatric: Reports: as per HPI Endocrine: Reports: as per HPI Hematological/Lymphatic: Reports: as per HPI Allergic/Immunologic: Reports: as per HPI Past Medical History - Past Medical History Source: patient Medical history: Reports: asthma Surgical history: Reports: other Psychiatric history: Reports: anxiety SECURITY ADVISOR history: Reports: no SECURITY ADVISOR history - Social History Smoking Status: Current some day smoker Smokeless Tobacco Status: No Alcohol use: Reports: none Drug use: Reports: none Physical Exam - General Limitations: no limitations, physical limitation General appearance: alert, anxious - Head Head exam: atraumatic - Eye Eye exam: Present: normal appearance - ENT ENT exam: normal exam - Neck Neck exam: Present: normal inspection, full ROM - Chest Chest inspection: Present: normal inspection, symmetric chest wall rise - Respiratory Respiratory exam: Present: respiratory distress, wheezes, accessory muscle use, prolonged expiratory phase - Cardiovascular Cardiovascular exam: Present: tachycardia, normal heart sounds - Rectal Exam Rectal exam: Present: deferred - Extremities Exam Extremities exam: Present: normal inspection - Neurological Exam Neurological exam: Present: alert, oriented X3, CN II-XII intact - Psychiatric Psychiatric exam: Present: anxious - Skin Skin exam: Present: warm, dry, intact Course Course Narrative: Patient presents with cough, wheezing, dyspnea. She has known history of asthma. - Reevaluation(s) Reevaluation #1: Patient screaming. Very anxious. Asking for "something to calm me down." States she is an opiate withdrawal and her last use was several hours ago Reevaluation #2: Dr. Guadalupe requests labs, portable CXR, UDS Reevaluation #3: Dr. Guadalupe aware that patient will need a high acuity inpatient bed Additional Reevaluation(s): Patient resting more complete. Wheezing improved but not back to baseline. She is less tachypneic. She is sleeping. ICU physician provider has been down to evaluate the patient Vital Signs Temperature 97.9 F 12/24/17 21:10 Pulse Rate 107 12/24/17 21:10 Respiratory Rate 26 12/24/17 21:10 Blood Pressure 143/75 12/24/17 21:10 O2 Sat by Pulse Oximetry 96 12/24/17 21:10 Temperature 97.9 F 12/24/17 21:10 Pulse Rate 107 12/24/17 21:10 Respiratory Rate 26 12/24/17 23:29 Blood Pressure 129/79 12/24/17 23:29 O2 Sat by Pulse Oximetry 96 12/24/17 22:37 Oxygen Delivery Oxygen Delivery Aerosol Mask Shortness of Breath/Dyspnea - Medical Records Medical records reviewed: Yes I reviewed the patient's medical records. - Lab Data Result diagrams: 12/24/17 22:57 Critical Care Time Critical Care Time: Yes Total Critical Care Time: 30 Attestation: The high probability of a clinically significant, sudden or life threatening deterioration of the [] system(s) required my full and direct attention, intervention and personal management. The aggregate critical care time was [] minutes. This time is in addition to time spent performing reported procedures but includes the following: [] Data Review and interpretation [] Patient assessment and monitoring of vital signs [] Documentation [] Medication orders and management
[2017-12-24] MEDS ORDERED: Terbutaline 1 MG/ML VIAL SQ ONE (21:32)
[2017-12-24] MEDS ORDERED: *HR* LORazepam 2 MG/ML VIAL IVP ONE (22:14)
[2017-12-24] MEDS ORDERED: methylPREDNISolone 125 MG/2 ML VIAL IVP ONE (22:20)
[2017-12-24] MEDS ORDERED: Albuterol 2.5 MG/3 ML NEBULIZER IH ONE (22:31)
--- NOTE | 2017-12-24 22:47 | Internal Med History&Physical ---
<Alexis Denis - Last Filed: 12/25/17 00:34> Date of Encounter: 12/25/17 Time of Encounter: 22:46 Internal Medicine - H&P: HPI Admitted From: Emergency Dept Plans for Post Hospital Care: Home History of present illness: Ms. Gaitan is a 27 year old female who presented to the emergency department today with the chief complaint of shortness of breath. Patient has a history of severe asthma requiring previous ICU admissions and intubations. She denies any recent fever or chills. Does have associated chest tightness and obviously short of breath. Denies any abdominal pain, nausea, vomiting or diarrhea. She has also been having a nonproductive cough. States that she uses opioids daily (suboxone) and Heroin with last use about 12 hours ago. States that she feels like she is withdrawing as well. Denies any cocaine use. Past Med Surg Social Fam HX - Past Medical History Medical history: asthma Psychiatric history: anxiety - Past Surgical History Surgical History: other Additional surgical history: Cyst removed from chest - Social History Smoking Status: Current some day smoker Smokeless Tobacco Status: No Alcohol use: none Drug use: none - Family History Father Adopted: No Living Status: Still Living Hx Family Cardiac Disorders: No Hx Family Respiratory Disorders: Yes (ASTHMA) Hx Family Cancer: No Hx Family GI Disorders: No Hx Family Endocrine Disorder: No Hx Family Neuromuscular Disorders: No Hx Family Neurologic Disorders: No Hx Family HEENT Disorders: No Hx Family Autoimmune Disorders: No Internal Medicine - H&P: Meds No Known Home Drugs 12/24/17 [History] 3 Allergy/AdvReac Type Severity Reaction Status Date / Time No Known Allergies Allergy Verified 06/21/17 11:09 All Systems PM: A 10-system review of systems was performed and is negative for pertinent findings except as documented above in the HPI. Review of systems: As reviewed in the HPI. All other systems reviewed are negative or normal. - Constitutional Vitals: Temp Pulse Resp BP Pulse Ox 97.9 F 107 30 143/75 96 12/24/17 21:10 12/24/17 21:10 12/24/17 22:37 12/24/17 21:10 12/24/17 22:37 General appearance: Present: mild distress, A&O X 3 (but is intermittently somnolent and responds to voice) - Head Head exam: Present: atraumatic, normocephalic - Eye Eye exam: Present: conjuntiva pink, sclera anicteric - Neck Neck exam general surgery: Present: supple, trachea midline. Absent: lymphadenopathy - Respiratory Respiratory exam: Present: accessory muscle use, prolonged expiratory phase, respiratory distress, wheezes, tachypnea. Absent: rales, rhonchi, stridor - Expanded Respiratory Exam Location: wheezes: Lower, Upper, Right, Left - Cardiovascular Cardiovascular exam: Present: +S1, +S2, tachycardia. Absent: diastolic murmur, gallop, RRR, rubs, systolic murmur - Extremities Exam Extremities exam: Present: warm, radial pulses palpable and symmetrical. Absent : calf tenderness, cyanotic, pedal edema - Neurological Exam Neurological exam: Present: CN II-XII intact, oriented X3, no focal deficits. Absent: facial droop, speech deficit - Psychiatric Psychiatric exam: Present: agitated, anxious - Skin Skin exam: Present: dry, intact Internal Med - H&P Results - Labs CBC & Chem 7: 12/24/17 22:57 - Assessment and plan (1) Status asthmaticus Current Visit: Yes Status: Acute Assessment and plan: 1. Received steroids, magnessium, terbutaline, and multiple nebs in ED with some improvement but still in moderate distress 2. Checking labs, CXR, UDS 3. PRN ativan for agitation/withdraw 4. Will be admitted to ICU for closer monitoring 5. Will place on schedulded solu-medrol 60 mg IV Q6hr 6. If not improving, may consider 0.5mg SQ epinephrine Q20min x3 doses 7. ABG now for concern over CO2 narcosis 8. Continuous albuterol x1 hour, then 2.5mg Q1 hr 9. BiPAP would be last resort before intubation Qualifiers: Asthma severity: severe Asthma persistence: persistent Qualified Code(s) : J45.52 - Severe persistent asthma with status asthmaticus - Time Spent With Patient Total time spent is greater than 50% in coordination of care (as documented) at patient's floor/unit and/or counseling patient: <Henry Guadalupe - Last Filed: 12/25/17 01:50> Date of Encounter: 12/25/17 Time of Encounter: 00:25 - Constitutional Constitutional: no chills, no fever(s) - EENT Eyes: no blurry vision Nose, mouth and throat: no nasal congestion, no sore throat - Cardiovascular Cardiovascular ROS IM: dyspnea, no chest pain - Respiratory Respiratory: cough, dyspnea, wheezing, no hemoptysis, no chest congestion, no excessive phlegm production, no change in phlegm color - Gastrointestinal Gastrointestinal: no abdominal pain, no diarrhea, no vomiting - Genitourinary Genitourinary: no dysuria, no flank pain - Musculoskeletal Musculoskeletal ROS IM: no arthralgias, no back pain - Integumentary Integumentary IM: no rash - Allergic/Immunologic Allergic/Immunologic: wheezing, no GI upset with certain foods - Constitutional Vitals: Temp Pulse Resp BP Pulse Ox 97.3 F L 132 28 118/78 97 12/25/17 00:00 12/25/17 01:00 12/25/17 01:00 12/25/17 01:00 12/25/17 01:00 Exam: somnolent; arousable; moderate to severe respiratory distress - Head Head exam: Present: atraumatic, normal inspection - Eye Eye exam: Present: EOMI, PERRL. Absent: scleral icterus Additional comments: pupils ~ 3 mm and reactive - ENT ENT exam: Present: mucous membranes dry, normal exam - Neck Neck exam general surgery: Present: full ROM, supple. Absent: tenderness - Respiratory Respiratory exam: Present: accessory muscle use, prolonged expiratory phase, respiratory distress, wheezes, tachypnea. Absent: chest wall tenderness, rales - Cardiovascular Cardiovascular exam: Present: RRR, +S1, +S2, tachycardia - GI/Abdominal GI/Abdominal exam: Present: soft. Absent: hepatomegaly, splenomegaly, tenderness - Extremities Exam Extremities exam: Present: warm, radial pulses palpable and symmetrical. Absent : calf tenderness - Neurological Exam Neurological exam: Present: no focal deficits Additional comments: somnolent but easily arousable; no focal deficits noted - Psychiatric Psychiatric exam: Present: anxious - Skin Skin exam: Present: dry, intact, warm Internal Med - H&P Results - Labs CBC & Chem 7: 12/24/17 22:57 Labs: BMP 12/24/17 22:57 Sodium 139 Potassium 4.0 Chloride 106 Carbon Dioxide 24 BUN 8 Creatinine 0.88 Glucose 99 Calcium 9.4 Liver Function 12/24/17 Range/Units 22:57 Total Bilirubin 0.6 (0.3-1.0) mg/dL AST 23 (13-39) Units/L ALT 9 (7-52) Units/L Alkaline Phosphatase 73 (34-104) Units/L Albumin 4.7 (3.5-5.7) g/dL - ABG Interpretation Interpretation: ABG interpreted by me ABG results: 12/25/17 12/25/17 00:03 00:42 ABG pH 7.39 ABG pCO2 41 ABG pO2 98 ABG HCO3 25 ABG Total CO2 26 ABG O2 Saturation 98 ABG Base Excess -1 VBG pH 7.21 L VBG pCO2 65 H VBG pO2 105 H VBG HCO3 26 Interpretation: normal - Diagnostic Studies Chest x-ray Status: image reviewed by me (hyperinflated, otherwise clear) - Attending Attestation I discussed the patient [place], past medical history, review of systems, lab data , and exam findings with Dr. Denis. I then saw, interviewed, and examined patient independently in the intensive care unit. She is somnolent but easily arousable. She falls sleep in midsentence, however. She has significant respiratory distress and is in status asthmaticus. Given her somnolence and severe respiratory distress, I asked Dr. Denis to obtain an arterial blood gas for concerns of CO2 narcosis. She did receive a dose of Ativan in the ER prior to transfer to the ICU which could be contributing to her somnolence. She admits to using heroin on a daily basis and last used about 12-13 hrs. ago prior to my assessment of the patient. She also states she uses Suboxone daily as prescribed. Her urine drug screen is positive for opiates. I reviewed her chest x-ray and note that she is hyperinflated but has no other focal findings. She denies any fevers or chills and notes that her asthma flareup was an abrupt onset earlier today. She had initial VBG in the ER which was concerning. However, in my opinion, a VBG is unreliable and does not assist in clinical evaluation. I therefore recommended obtaining an ABG with close monitoring in ICU. Arterial blood gas did reveal normal findings. Will continue with aggressive respiratory support in the form of scheduled aerosols, continuous aerosol for one hour, oxygen as needed, and close critical care monitoring. If necessary, we will place her on BiPAP and/or intubate in the event she becomes more somnolent. We will withhold her Suboxone and other sedating meds for now until patient improves from a [employer] standpoint. In the event she declines from a respiratory standpoint , I would have a very low threshold to proceed with elective intubation and mechanical ventilation. I discussed this with patient and Dr. Denis and they are both in agreement. I also discussed with respiratory therapy and asked them to closely monitor patient as well. Other than my comments noted above and physical exam findings, I agree with Dr. Adler's assessment and plan. - Time Spent With Patient Total time spent is greater than 50% in coordination of care (as documented) at patient's floor/unit and/or counseling patient:
[2017-12-24] MEDS ORDERED: Naloxone 0.4 MG/ML INJ IVP PRN (23:25)
[2017-12-24] MEDS ORDERED: Albuterol 2.5 MG/3 ML NEBULIZER IH PRN (23:26)
[2017-12-24 23:27] LABS: Alanine Aminotransferase 9 Units/L (7-52); Albumin 4.7 g/dL (3.5-5.7); Albumin/Globulin Ratio 1.5 (1.1-2.2); Alkaline Phosphatase 73 Units/L (34-104); Aspartate Amino Transferase 23 Units/L (13-39); BUN/Creatinine Ratio 9 (6-26); Bilirubin,Total 0.6 mg/dL (0.3-1.0); Blood Urea Nitrogen 8 mg/dL (6-20); Calcium 9.4 mg/dL (8.6-10.3); Carbon Dioxide 24 mEq/L (23-29); Chloride 106 mEq/L (98-107); Globulin 3.1 g/dL (2.4-3.5); Glucose 99 mg/dL (70-105); Magnesium 2.2 mg/dL (1.6-2.6); Osmolality,Calculated 286 (280-300); Sodium 139 mEq/L (136-145); Total Protein 7.8 g/dL (6.4-8.9); eGFR For African Americans > 60 (> 60); eGFR For Non-African Americans > 60 (> 60)
[2017-12-24] MEDS ORDERED: D5% in 0.45% NACL 1,000 ML IVC SCH (23:30)
[2017-12-24 23:48] LABS: Amphetamine Screen,Urine Negative ng/mL (Cutoff=1000); Barbiturate Screen,Urine Negative ng/mL (Cutoff=200); Benzodiazepines Screen,Urine Negative ng/mL (Cutoff=200); Cannabinoid Screen,Urine Negative ng/mL (Cutoff = 50); Cocaine Screen,Urine Negative ng/mL (Cutoff= 300); Opiate Screen,Urine Positive ng/mL (Cutoff=300); Phencyclidine Screen,Urine Negative ng/mL (Cutoff=25)
[2017-12-24] MEDS ORDERED: *HR* LORazepam 2 MG/ML VIAL IVP PRN (23:56)
[2017-12-25] MEDS ORDERED: Ringers Solution, Lactated 1,000 ML IVC SCH
[2017-12-25] MEDS ORDERED: MethylPREDNISolone 40 MG/ML VIAL IVP SCH
[2017-12-25 00:06] LABS: VBG HCO3 26 mEq/L (21-27); VBG PCO2 65 mmHg (41-51); VBG PH 7.21 pH Units (7.32-7.42); VBG PO2 105 mmHg (25-50)
[2017-12-25] MEDS ORDERED: Albuterol 2.5 MG/3 ML NEBULIZER IH ONE (00:31)
[2017-12-25 00:47] LABS: ABG Base Excess -1 mEq/L (-2 to 3); ABG HCO3 25 mEq/L (21-27); ABG Oxygen Saturation 98 % (95-98); ABG PCO2 41 mmHg (35-45); ABG PH 7.39 pH Units (7.32-7.45); ABG PO2 98 mmHg (85-104); ABG TCO2 26 mEq/L (20-26); Blood Gas Modality PC
[2017-12-25] MEDS ORDERED: Naloxone 0.4 MG/ML INJ IVP PRN (01:13)
[2017-12-25] MEDS: Ringers Solution, Lactated 1,000 ML IVC SCH ×3 (02:04→16:39)
[2017-12-25] MEDS: Albuterol 2.5 MG/3 ML NEBULIZER IH PRN ×4 (02:52→09:35)
[2017-12-25] MEDS ORDERED: *HR* LORazepam 2 MG/ML VIAL IVP ONE (03:04)
[2017-12-25] MEDS ORDERED: *HR* LORazepam 2 MG/ML VIAL ONE (03:06)
[2017-12-25] MEDS ORDERED: *HR* OxyCODONE Oral Soln 5 MG/5 ML UD.LIQ PO STA (04:20)
[2017-12-25] MEDS ORDERED: *HR* LORazepam 2 MG/ML VIAL IVP PRN (05:36)
[2017-12-25] MEDS: Famotidine 20 MG/2 ML VIAL IVP SCH ×2 (05:53→17:55)
[2017-12-25] MEDS: *HR* Heparin 5,000 UNIT/ML VIAL SQ SCH ×2 (05:53→17:59)
[2017-12-25] MEDS ORDERED: Famotidine 20 MG/2 ML VIAL IVP SCH (06:00)
[2017-12-25] MEDS ORDERED: *HR* Heparin 5,000 UNIT/ML VIAL SQ SCH (06:00)
[2017-12-25] MEDS: MethylPREDNISolone 40 MG/ML VIAL IVP SCH ×4 (06:21→23:32)
[2017-12-25] MEDS ORDERED: *HR* HYDROmorphone (PF) 1 MG/ML SYRINGE IVP ONE ×2 (06:34→06:48)
[2017-12-25] MEDS ORDERED: cloNIDine HCl 0.1 MG TABLET PO ONE (06:36)
[2017-12-25] MEDS ORDERED: CloNIDine Patch 0.1 MG PATCH (WEEKLY) TD SCH (06:45)
[2017-12-25] MEDS ORDERED: Dexmedetomidine HCl 400 MCG/100 ML MLS IVC ONE (06:52)
[2017-12-25] MEDS ORDERED: FentaNYL (PF) 1,000 MCG in 0.9 % Sodium Chloride 80 ML IVC SCH (07:30)
--- NOTE | 2017-12-25 08:05 | Pulmonology Consult Note ---
<AshleephamJohn loyd W - Last Filed: 12/25/17 10:02> Date of Encounter: 12/25/17 Medications and Allergies No Known Home Drugs 12/24/17 [History] 3 Allergy/AdvReac Type Severity Reaction Status Date / Time No Known Allergies Allergy Verified 06/21/17 11:09 All Systems: The remainder of the systems were reviewed and are negative Physical Examination Vital Signs: Vital Signs, Last 4 Hours Temp Pulse Resp BP Pulse Ox 12/25/17 07:00 142 42 126/11 99 12/25/17 06:27 36 92 12/25/17 06:00 137 26 157/89 95 12/25/17 05:00 133 42 124/69 96 12/25/17 04:58 99.1 F Results - Laboratory Findings CBC and BMP: 12/24/17 22:57 ABG ABG pH 7.39 pH Units (7.32-7.45) 12/25/17 00:42 ABG pCO2 41 mmHg (35-45) 12/25/17 00:42 ABG pO2 98 mmHg (85-104) 12/25/17 00:42 ABG O2 Saturation 98 % (95-98) 12/25/17 00:42 Abnormal lab findings: Abnormal lab results VBG pH 7.21 pH Units (7.32-7.42) L 12/25/17 00:03 VBG pCO2 65 mmHg (41-51) H 12/25/17 00:03 VBG pO2 105 mmHg (25-50) H 12/25/17 00:03 POC Glucose 173 mg/dL (70-99) H 12/25/17 00:21 Urine Opiates Screen Positive ng/mL (Hytmwx=092) H 12/24/17 23:27 - Clinical Findings Intake & Output: Intake & Output 12/24/17 12/25/17 12/25/17 23:59 07:59 15:59 Intake Total 473 / 473 Balance 473 / 473 Consult Discharge Plan - Plan Referrals: NONE,PCP [Primary Care Provider] - - Attending Attestation I examined this patient and my medical decision-making was reviewed with the Resident Physician. I agree with the documented findings, disposition and treatment plan as described except to the extent set forth below. We independently had [id number] contact with the patient I spent 36min of Critical Care time with this patient. It involved decision making of high complexity to assess, manipulate, and support vital organ system failure and/or to prevent further life threatening deterioration of the patient' s condition. The time involved in the performance of separately reportable procedures was not counted toward critical care time. Patient seen and examined at bedside Labs, radiology, chart personally reviewed. Management was reviewed during multidisciplinary critical care rounds. [employer]: Agitated in daniel opiate withdrawal complicated by moderate respiratory distress. Starting low dose opiate infusion.and precedex. Pulm: Acute hypoxic respiratory failure s/t to severe asthma exacerbation. Mg2+ , Q1 hour bronchodilators, Steroids, Heliox and Bipap given. High risk for progression to intubation and has a history of previous intubations. Very difficulty situation with concomitant opiate withdrawal. Cards: Tachycardic. BP stable. cont to monitor on telemetry FEN-GI:NPO for now Renal: NO MARK cont to monitor UOP ID: No clear infectiious process. Heme/Onc: DVT prophylaxis given Endo: Glucose Monitored Integ/MSK: Skin Care per routine ICU Nursing Protocol to prevent ulcers. Lines: All lines examined without evidence of infection : Dispo: ICU for close monitoring and life-threatening illness CODE: Full. Mother and Aunt updated. Prognosis guarded. <Jayla Meehan - Last Filed: 12/25/17 15:57> Date of Encounter: 12/25/17 Time of Encounter: 09:15 Assessment and Plan (1) Acute asthma exacerbation Current Visit: Yes Status: Acute Admitted to ICU multiple times and required intubation in the past for asthma exacerbation CXR negative for acute pathology Exacerbation may be related to medication noncompliance, anxiety, viral URI Tolerating BiPAP Respiratory rate in 40's Plan Alternating Albuterol and Duoneb treatments hourly Solumedrol 60mg IV Q6H Continue BiPAP Continue monitoring for worsening respiratory status Qualifiers: Asthma severity: moderate Asthma persistence: unspecified Qualified Code( s): J45.901 - Unspecified asthma with (acute) exacerbation (2) Opioid use with withdrawal Current Visit: Yes Status: Acute History of heroin and daily suboxone use Last known use 12 hours prior to arrival Plan Fentanyl drip Clonidine patch Symptomatic care (3) Sinus tachycardia Current Visit: Yes Status: Acute Pulse in 130's Likely related to opioid withdrawal Plan Continue manager cardiac (4) DVT prophylaxis Current Visit: Yes Status: Acute Heparin subQ History of Present Illness Consult date: 12/25/17 Reason for consult: asthma Chief complaint: Short of breath History of present illness: Ms. Gaitan is a 27-year-old female who presented to the emergency department with a chief complaint of shortness of breath. Patient has a history of asthma that has required ICU admissions and intubations in the past. Patient seen and examined this morning, she was unable to fully participate with interview due to sedation with Precedex and fentanyl. However she was able to open her eyes when asked and respond with shaking her head yes/no. She admitted chest tightness and denied abdominal pain, fevers, chills. She has also been having a nonproductive cough. Overnight, the pt became agitated and uncooperative, she was started on precedex. Per record review, pt stated she felt like she was going into withdrawals--she takes suboxone daily and last used heroin 12 hours prior to admission. Past Med Surg Social Fam HX - Past Medical History Medical history: asthma Psychiatric history: anxiety - Past Surgical History Surgical History: other Additional surgical history: Cyst removed from chest - Social History Smoking Status: Current some day smoker Packs per day: 0.5 Smokeless Tobacco Status: No Alcohol use: none Drug use: IV Drug Use, other - Family History Father Adopted: No Living Status: Still Living Hx Family Cardiac Disorders: No Hx Family Respiratory Disorders: Yes (ASTHMA) Hx Family Cancer: No Hx Family GI Disorders: No Hx Family Endocrine Disorder: No Hx Family Neuromuscular Disorders: No Hx Family Neurologic Disorders: No Hx Family HEENT Disorders: No Hx Family Autoimmune Disorders: No All Systems: The remainder of the systems were reviewed and are negative - Constitutional Constitutional: no chills, no fever(s) - Cardiovascular Cardiovascular: no chest pain - Respiratory Respiratory: cough, dyspnea - Gastrointestinal Gastrointestinal: no abdominal pain Physical Examination Vital Signs: Vital Signs, Last 4 Hours Temp Pulse Resp BP Pulse Ox 12/25/17 06:27 36 92 12/25/17 06:00 137 26 157/89 95 12/25/17 05:00 133 42 124/69 96 12/25/17 04:58 99.1 F General appearance: other (on sedation) Neck: supple Effort: other (moderately labored) Auscultation: bilateral: clear Cardiovascular: other (HR 140's) Gastrointestinal: soft, non-tender, non-distended Integumentary: normal Extremities: no cyanosis, no edema, no clubbing, pink and warm other (sedated, appropriate responses to questions, moving all extremities) Results - Laboratory Findings CBC and BMP: 12/25/17 13:43 12/24/17 22:57 ABG ABG pH 7.39 pH Units (7.32-7.45) 12/25/17 00:42 ABG pCO2 41 mmHg (35-45) 12/25/17 00:42 ABG pO2 98 mmHg (85-104) 12/25/17 00:42 ABG O2 Saturation 98 % (95-98) 12/25/17 00:42 Abnormal lab findings: Abnormal lab results VBG pH 7.21 pH Units (7.32-7.42) L 12/25/17 00:03 VBG pCO2 65 mmHg (41-51) H 12/25/17 00:03 VBG pO2 105 mmHg (25-50) H 12/25/17 00:03 POC Glucose 173 mg/dL (70-99) H 12/25/17 00:21 Urine Opiates Screen Positive ng/mL (Yanugu=052) H 12/24/17 23:27 - Clinical Findings Intake & Output: Intake & Output 12/24/17 12/25/17 12/25/17 23:59 07:59 15:59 Intake Total 473 / 473 Balance 473 / 473
[2017-12-25] MEDS: Dexmedetomidine HCl 200 MCG in 0.9 % Sodium Chloride 50 ML IVPB SCH ×3 (08:13→23:40)
[2017-12-25] MEDS: Ipratropium/Albuterol Neb 3 ML IH SCH ×3 (10:58→16:05)
[2017-12-25] MEDS: Albuterol 2.5 MG/3 ML NEBULIZER IH SCH ×5 (11:43→21:35)
[2017-12-25 14:05] LABS: Basophils % 0.2 %; Hematocrit 43.1 % (35.3-44.9); Hemoglobin 14.8 g/dL (11.5-15.4); Immature Granulocytes % 0.8 % (0-4); Lymphocytes # 1.1 K/mcL (0.6-4.6); Lymphocytes % 4.5 %; Mean Corpuscular HGB Conc 34.3 g/dL (31.6-35.5); Mean Corpuscular Hemoglobin 32.2 pg (28.0-33.3); Mean Corpuscular Volume 93.9 fL (83.0-100.0); Mean Platelet Volume 10.6 fL (9.4-12.4); Monocytes # 0.3 K/mcL (0.0-1.3); Monocytes % 1.4 %; Neutrophils # 22.7 K/mcL (1.6-8.9); Platelet Count 225 K/mcL (140-400); Red Blood Count 4.59 M/mcL (3.82-4.97); Red Cell Distribution Width 13.3 % (11.5-14.5); Segmented Neutrophils % 93.1 %
[2017-12-25 14:11] LABS: Basophils # 0.1 K/mcL (0.0-0.2)
[2017-12-25] MEDS ORDERED: *HR* FentaNYL (PF) 100 MCG/2 ML VIAL IVP PRN (17:57)
[2017-12-26] MEDS: Albuterol 2.5 MG/3 ML NEBULIZER IH SCH ×8 (00:13→21:21)
[2017-12-26] MEDS: Ringers Solution, Lactated 1,000 ML IVC SCH ×4 (02:09→20:31)
[2017-12-26] MEDS: MethylPREDNISolone 40 MG/ML VIAL IVP SCH ×4 (06:17→23:24)
[2017-12-26] MEDS: Famotidine 20 MG/2 ML VIAL IVP SCH ×2 (06:18→18:19)
[2017-12-26] MEDS: *HR* Heparin 5,000 UNIT/ML VIAL SQ SCH ×2 (06:23→18:19)
[2017-12-26] MEDS: Dexmedetomidine HCl 200 MCG in 0.9 % Sodium Chloride 50 ML IVPB SCH (06:28)
--- NOTE | 2017-12-26 06:56 | Pulmonology Progress Note ---
Date of Encounter: 12/26/17 Time of Encounter: 06:56 Assessment and Plan (1) Acute respiratory failure Current Visit: No Status: Resolved This is secondary to severe asthma exacerbation. She remains on significant amount of supplemental oxygen support and requiring BiPAP at this time however I suspect we can wean this down over the course of the morning. We have been able to decrease the frequency of her nebulized breathing treatments to every 2- 3 hours. We will continue to monitor this closely but I suspect that she could not be transitioned from the ICU level of care to the stepdown unit or medical floor over the next 12-24 hours. Qualifiers: Respiratory failure complication: hypoxia Qualified Code(s): J96.01 - Acute respiratory failure with hypoxia (2) Asthma exacerbation Current Visit: Yes Status: Acute Continue bronchodilators every 3 hours at this time. We will schedule these and she can have every hour albuterol as needed. She is been weaned off heliox. Continue oxygen continue IV steroids will need to transition to a home asthma regimen which we can start while inpatient Qualifiers: Asthma severity: severe Asthma persistence: persistent Qualified Code(s) : J45.51 - Severe persistent asthma with (acute) exacerbation (3) Opioid use with withdrawal Current Visit: Yes Status: Acute Clinically she remains tachycardic this may be related to respiratory failure and frequent use of bronchodilators however could not fully exclude the possibility that this reflects withdrawal. Currently she is off any opiate infusion and not showing severe evidence of withdrawal she has a clonidine patch on we are weaning off Precedex now and she can likely transition to her home use of Suboxone (4) DVT prophylaxis Current Visit: Yes Status: Acute Continue routine chemical DVT prophylaxis Subjective Principal diagnosis: Asthma Exacerbation Interval history: Ms Gaitan remains in the ICU for respiratory failure. For most of the day as 24 hours. She was receiving's with a 7030 admixture which has been discontinued. Overall her respiratory rate has decreased oxygen saturation is improved and she appears much more comfortable. On the standpoint of her withdrawal she is been weaned off fentanyl infusion and we have been using Precedex to help with periods of agitation although given her level of calm this on examination today I suspect this can be weaned down further. She was joined by her brother her on it and her mother at bedside yesterday all of home I had a chance of meat and up-to-date on her clinical course. Objective PUL Vital signs: Last Vital Signs Temp 99.1 F 12/26/17 05:03 Pulse 101 12/26/17 06:30 Resp 22 12/26/17 06:30 BP 136/91 12/26/17 06:30 Pulse Ox 97 12/26/17 06:30 General appearance: lethargic (But easily arousable) Eyes: nonicteric Neck: supple Effort: mildly labored Auscultation: bilateral: wheezes (Bilaterally inspiratory wheezing in anterior and posterior lung camacho) Cardiovascular: other (Rapid rate regular rhythm) Gastrointestinal: normoactive bowel sounds, soft, non-tender, non-distended Integumentary: normal Extremities: no cyanosis, no edema, no clubbing, pink and warm Musculoskeletal: no deformities non-focal exam, pupils equal and round, motor strength normal and symmetric Results - Laboratory Findings CBC and BMP: 12/25/17 13:43 12/26/17 06:50 ABG ABG pH 7.39 pH Units (7.32-7.45) 12/25/17 00:42 ABG pCO2 41 mmHg (35-45) 12/25/17 00:42 ABG pO2 98 mmHg (85-104) 12/25/17 00:42 ABG O2 Saturation 98 % (95-98) 12/25/17 00:42 Abnormal lab findings: Abnormal lab results WBC 24.4 K/mcL (4.3-11.1) H 12/25/17 13:43 Neutrophils # 22.7 K/mcL (1.6-8.9) H 12/25/17 13:43 VBG pH 7.21 pH Units (7.32-7.42) L 12/25/17 00:03 VBG pCO2 65 mmHg (41-51) H 12/25/17 00:03 VBG pO2 105 mmHg (25-50) H 12/25/17 00:03 POC Glucose 173 mg/dL (70-99) H 12/25/17 00:21 Urine Opiates Screen Positive ng/mL (Tvjitn=659) H 12/24/17 23:27 - Clinical Findings Intake & Output: Intake & Output 12/25/17 12/25/17 12/26/17 15:59 23:59 07:59 Intake Total 94 / 94 502 / 502 1082 / 1082 Output Total 250 / 250 850 / 850 250 / 250 Balance -156 / -156 -348 / -348 832 / 832 Weight 63.3 kg Consult Discharge Plan - Plan Referrals: NONE,PCP [Primary Care Provider] -
[2017-12-26 07:21] LABS: BUN/Creatinine Ratio 22 (6-26); Blood Urea Nitrogen 18 mg/dL (6-20); Calcium 9.3 mg/dL (8.6-10.3); Carbon Dioxide 22 mEq/L (23-29); Chloride 109 mEq/L (98-107); Glucose 141 mg/dL (70-105); Osmolality,Calculated 290 (280-300); Potassium 4.2 mEq/L (3.5-5.1); Sodium 138 mEq/L (136-145); eGFR For African Americans > 60 (> 60); eGFR For Non-African Americans > 60 (> 60)
[2017-12-26 08:29] LABS: Basophils % 0.1 %; Hematocrit 42.7 % (35.3-44.9); Hemoglobin 14.5 g/dL (11.5-15.4); Immature Granulocytes % 1.1 % (0-4); Lymphocytes # 1.2 K/mcL (0.6-4.6); Lymphocytes % 4.9 %; Mean Corpuscular Hemoglobin 32.3 pg (28.0-33.3); Mean Corpuscular Volume 95.1 fL (83.0-100.0); Mean Platelet Volume 10.6 fL (9.4-12.4); Monocytes # 0.8 K/mcL (0.0-1.3); Monocytes % 3.5 %; Platelet Count 220 K/mcL (140-400); Red Blood Count 4.49 M/mcL (3.82-4.97); Red Cell Distribution Width 13.5 % (11.5-14.5); Segmented Neutrophils % 90.4 %
[2017-12-26 08:49] LABS: Neutrophils # 21.2 K/mcL (1.6-8.9)
[2017-12-26 08:50] LABS: Platelet Estimate Normal (Normal)
[2017-12-26] MEDS ORDERED: CloNIDine Patch 0.1 MG PATCH (WEEKLY) TD SCH (11:41)
[2017-12-26] MEDS ORDERED: Naloxone 0.4 MG/ML INJ IVP PRN (11:41)
[2017-12-26] MEDS: *HR* LORazepam 2 MG/ML VIAL IVP PRN ×2 (12:37→19:15)
--- NOTE | 2017-12-26 13:20 | Event Note ---
Date of Encounter: 12/26/17 Time of Encounter: 11:30 Patient will be transferred out of the ICU unit and to telemetry floor. Spoke to hospitalist Dr. Padilla who agreed to accept the patient.
[2017-12-26] MEDS: *HR* FentaNYL (PF) 100 MCG/2 ML VIAL IVP PRN ×2 (17:05→20:30)
[2017-12-26] MEDS ORDERED: Benzonatate 100 MG CAPSULE PO STA (19:21)
[2017-12-27] MEDS: Albuterol 2.5 MG/3 ML NEBULIZER IH SCH ×7 (00:13→20:32)
[2017-12-27] MEDS: *HR* FentaNYL (PF) 100 MCG/2 ML VIAL IVP PRN ×7 (00:27→23:19)
[2017-12-27] MEDS: Ringers Solution, Lactated 1,000 ML IVC SCH (04:35)
[2017-12-27] MEDS: Famotidine 20 MG/2 ML VIAL IVP SCH ×2 (05:00→17:42)
[2017-12-27] MEDS: *HR* LORazepam 2 MG/ML VIAL IVP PRN ×5 (05:00→23:24)
[2017-12-27] MEDS: MethylPREDNISolone 40 MG/ML VIAL IVP SCH ×3 (05:00→17:42)
[2017-12-27] MEDS: *HR* Heparin 5,000 UNIT/ML VIAL SQ SCH ×2 (05:01→20:13)
--- NOTE | 2017-12-27 08:02 | Pulmonology Progress Note ---
Date of Encounter: 12/27/17 Time of Encounter: 08:01 Assessment and Plan (1) Acute respiratory failure Current Visit: No Status: Resolved This is secondary to severe asthma exacerbation. Pertinent FiO2 to keep saturation greater than 88% around 92% Ambulatory oximetry testing prior to discharge to evaluate for O2 need Qualifiers: Respiratory failure complication: hypoxia Qualified Code(s): J96.01 - Acute respiratory failure with hypoxia (2) Asthma exacerbation Current Visit: Yes Status: Acute Patient has severe persistent uncontrolled asthma complicated by drug addiction She is a very high risk for mortality given the severity of her asthma and uncontrolled symptoms I will start Symbicort 160/4.52 puffs twice a day with a spacer instructions by RT regarding its use will be given We will also start montelukast nightly Recommend steroid taper over the next 2 weeks Patient should be given a steroid burst that is 40 mg of prednisone daily 5 days to start taking if symptoms worsen I explained that her disease can be lethal if not treated properly She needs outpatient pulmonary follow-up for management of her asthma Qualifiers: Asthma severity: severe Asthma persistence: persistent Qualified Code(s) : J45.51 - Severe persistent asthma with (acute) exacerbation (3) Opioid use with withdrawal Current Visit: Yes Status: Acute Mild symptoms of withdrawal patient can likely restart her home Suboxone Consultation to health and social care teacher recommended (4) DVT prophylaxis Current Visit: Yes Status: Acute Continue routine chemical DVT prophylaxis Subjective Principal diagnosis: Asthma Exacerbation Interval history: Transferred to the primary medicine service overnight although no beds were available outside of the ICU. She is been quite stable and remains on oxygen but amount has been able to be weaned down significantly such nodular about 5 L via oxygen mask. She says her chest still feels tight in that she is having some abdominal pain Objective PUL Vital signs: Last Vital Signs Temp 99.4 F 12/27/17 04:55 Pulse 96 12/27/17 07:25 Resp 17 12/27/17 06:18 BP 111/75 12/27/17 06:07 Pulse Ox 100 12/27/17 06:18 General appearance: no acute distress Eyes: nonicteric ENT: oropharynx moist Effort: mildly labored Auscultation: bilateral: wheezes Cardiovascular: regular rate and rhythm Gastrointestinal: normoactive bowel sounds, soft, non-tender Integumentary: normal Extremities: no cyanosis, no edema Musculoskeletal: no deformities normal mental status, non-focal exam Results - Laboratory Findings CBC and BMP: 12/26/17 06:50 12/26/17 06:50 ABG ABG pH 7.39 pH Units (7.32-7.45) 12/25/17 00:42 ABG pCO2 41 mmHg (35-45) 12/25/17 00:42 ABG pO2 98 mmHg (85-104) 12/25/17 00:42 ABG O2 Saturation 98 % (95-98) 12/25/17 00:42 Abnormal lab findings: Abnormal lab results WBC 23.5 K/mcL (4.3-11.1) H 12/26/17 06:50 Neutrophils # 21.2 K/mcL (1.6-8.9) H 12/26/17 06:50 VBG pH 7.21 pH Units (7.32-7.42) L 12/25/17 00:03 VBG pCO2 65 mmHg (41-51) H 12/25/17 00:03 VBG pO2 105 mmHg (25-50) H 12/25/17 00:03 Chloride 109 mEq/L (98-107) H 12/26/17 06:50 Carbon Dioxide 22 mEq/L (23-29) L 12/26/17 06:50 Glucose 141 mg/dL (70-105) H 12/26/17 06:50 POC Glucose 173 mg/dL (70-99) H 12/25/17 00:21 Urine Opiates Screen Positive ng/mL (Kdminf=594) H 12/24/17 23:27 - Clinical Findings Intake & Output: Intake & Output 12/26/17 12/27/17 12/27/17 23:59 07:59 15:59 Intake Total 2200 / 2200 1720 / 1720 Output Total 0 / 0 825 / 825 Balance 2200 / 2200 895 / 895 Weight 64 kg Consult Discharge Plan - Plan Referrals: NONE,PCP [Primary Care Provider] -
[2017-12-27] MEDS ORDERED: Albuterol 2.5 MG/3 ML NEBULIZER IH PRN (09:39)
[2017-12-27] MEDS: Budesonide/Formoterol 160/4.5 MDI IH SCH ×2 (09:41→20:33)
--- NOTE | 2017-12-27 10:54 | Internal Med Progress Note ---
Date of Encounter: 12/27/17 Time of Encounter: 10:54 - Assessment and plan (1) Asthma exacerbation Current Visit: No Status: Resolved Qualifiers: Asthma severity: mild Asthma persistence: intermittent Qualified Code(s) : J45.21 - Mild intermittent asthma with (acute) exacerbation Code(s): J45.901 - Unspecified asthma with (acute) exacerbation (2) Bronchitis Current Visit: Yes Status: Acute (3) Opioid use with withdrawal Current Visit: Yes Status: Acute - Time Spent With Patient Plan I had long discussion with patient counseling about deep breathing, counseling about drug use and counseling about care home complication. With the patient multiple comorbidities T and drug use and clinically possible pneumonia cannot rule out aspiration we will start patient empirically on IV antibiotic continue steroids continue aerosol treatment, add Mucinex, chest physiotherapy, incentive spirometry, wean oxygen as tolerated patient can be transferred to telemetry bed Total time spent is greater than 50% in coordination of care (as documented) at patient's floor/unit and/or counseling patient: 25 - 35 minutes - Subjective Interval history: Patient complaining of productive cough with yellowish to green sputum, coughing large amount of yellowish to greenish sputum in the cup, patient complaining of chest tightness and wheezing. No palpitation - Constitutional Vitals: Temp Pulse Resp BP Pulse Ox 99.4 F 96 17 111/75 100 12/27/17 04:55 12/27/17 07:25 12/27/17 06:18 12/27/17 06:07 12/27/17 06:18 General appearance: Present: mild distress, A&O X 3 (but is intermittently somnolent and responds to voice), no acute distress - Head Head exam: Present: atraumatic, normocephalic - Neck Neck exam general surgery: Present: supple, trachea midline. Absent: lymphadenopathy - Respiratory Respiratory exam: Present: decreased breath sounds, prolonged expiratory phase, rales, wheezes (Diffuse expiratory coarse wheezing bilateral and crackles bilateral). Absent: accessory muscle use, rhonchi - Cardiovascular Cardiovascular exam: Present: RRR, +S1, +S2. Absent: diastolic murmur, gallop, rubs, systolic murmur - Extremities Exam Extremities exam: Present: warm, radial pulses palpable and symmetrical. Absent : calf tenderness, cyanotic, pedal edema - Neurological Exam Neurological exam: Present: CN II-XII intact, oriented X3, no focal deficits. Absent: pronater drift, facial droop, speech deficit - Skin Skin exam: Present: dry, intact Internal Medicine: Result - Labs CBC & Chem 7: 12/26/17 06:50 12/26/17 06:50 - ABG Interpretation ABG results: ABG ABG pH 7.39 pH Units (7.32-7.45) 12/25/17 00:42 ABG pCO2 41 mmHg (35-45) 12/25/17 00:42 ABG pO2 98 mmHg (85-104) 12/25/17 00:42 ABG O2 Saturation 98 % (95-98) 12/25/17 00:42 Consult Discharge Plan - Plan Referrals: NONE,PCP [Primary Care Provider] -
[2017-12-27] MEDS: Doxycycline 100 MG in 0.9 % Sodium Chloride Mini Bag 100 ML IVPB SCH (16:11)
[2017-12-27] MEDS: Piperacillin/Tazobactam 3.375 GM in 0.9 % Sodium Chloride Mini Bag 100 ML IVPB SCH (17:42)
[2017-12-28] MEDS: Piperacillin/Tazobactam 3.375 GM in 0.9 % Sodium Chloride Mini Bag 100 ML IVPB SCH ×2 (00:16→14:00)
[2017-12-28] MEDS: *HR* FentaNYL (PF) 100 MCG/2 ML VIAL IVP PRN ×2 (00:17→04:16)
[2017-12-28] MEDS: MethylPREDNISolone 40 MG/ML VIAL IVP SCH ×3 (00:17→12:50)
[2017-12-28] MEDS: Albuterol 2.5 MG/3 ML NEBULIZER IH SCH ×4 (00:20→11:37)
[2017-12-28] MEDS: *HR* LORazepam 2 MG/ML VIAL IVP PRN (03:17)
[2017-12-28] MEDS: Famotidine 20 MG/2 ML VIAL IVP SCH (06:50)
[2017-12-28] MEDS: *HR* Heparin 5,000 UNIT/ML VIAL SQ SCH ×2 (06:50→06:51)
[2017-12-28] MEDS: Doxycycline 100 MG in 0.9 % Sodium Chloride Mini Bag 100 ML IVPB SCH (06:50)
[2017-12-28] MEDS: Budesonide/Formoterol 160/4.5 MDI IH SCH (07:47)
[2017-12-28 08:52] LABS: Basophils % 0.1 %; Hematocrit 38.1 % (35.3-44.9); Hemoglobin 13.2 g/dL (11.5-15.4); Immature Granulocytes % 0.8 % (0-4); Lymphocytes # 1.1 K/mcL (0.6-4.6); Lymphocytes % 9.4 %; Mean Corpuscular HGB Conc 34.6 g/dL (31.6-35.5); Mean Corpuscular Hemoglobin 31.9 pg (28.0-33.3); Mean Platelet Volume 10.8 fL (9.4-12.4); Monocytes # 0.4 K/mcL (0.0-1.3); Monocytes % 3.5 %; Neutrophils # 10.2 K/mcL (1.6-8.9); Nucleated Red Blood Cells 0.2 /100 WBC (0); Platelet Count 188 K/mcL (140-400); Red Blood Count 4.14 M/mcL (3.82-4.97); Red Cell Distribution Width 13.3 % (11.5-14.5); Segmented Neutrophils % 86.2 %
[2017-12-28] MEDS ORDERED: clonazePAM 1 MG TABLET PO PRN (09:50)
[2017-12-28] MEDS ORDERED: *HR* HYDROcodone/Acet 5/325 mg TABLET PO PRN (09:50)
[2017-12-28 09:55] VITALS: BP 138/87
--- NOTE | 2017-12-28 11:21 | Internal Med Progress Note ---
Date of Encounter: 12/28/17 Time of Encounter: :18 - Assessment and plan (1) Asthma exacerbation Current Visit: No Status: Resolved Qualifiers: Asthma severity: mild Asthma persistence: intermittent Qualified Code(s) : J45.21 - Mild intermittent asthma with (acute) exacerbation Code(s): J45.901 - Unspecified asthma with (acute) exacerbation (2) Bronchitis Current Visit: Yes Status: Acute (3) Opioid use with withdrawal Current Visit: Yes Status: Acute - Time Spent With Patient Plan Counseling patient about deep breathing and counseling on incentive spirometry counseling about deep breathing, continue aerosol treatment, continue Mucinex and his steroids. Awaiting sputum culture continue current antibiotic will check chest x-ray, Counseling patient about to be medication, will discontinue Ativan as well as fentanyl IV, taper down pain medication and benzodiazepine and change it to oral. Total time spent is greater than 50% in coordination of care (as documented) at patient's floor/unit and/or counseling patient: 25 - 35 minutes - Subjective Interval history: Patient continued to have fat productive cough with shortness of breath and diffuse wheezing bilateral, she is feeling so anxious at patient's taking Ativan up to 4 times a day at home 0.5 mg - Constitutional Vitals: Temp Pulse Resp BP Pulse Ox 98.3 F 84 16 138/87 96 12/28/17 09:55 12/28/17 09:55 12/28/17 09:55 12/28/17 09:55 12/28/17 09:55 General appearance: Present: mild distress, A&O X 3 (but is intermittently somnolent and responds to voice), no acute distress - Head Head exam: Present: atraumatic, normocephalic - Neck Neck exam general surgery: Present: supple, trachea midline. Absent: lymphadenopathy - Respiratory Respiratory exam: Present: decreased breath sounds, rales (Patient had diffuse expiratory wheezing crackles bilateral lung ), wheezes. Absent: accessory muscle use - Cardiovascular Cardiovascular exam: Present: RRR, +S1, +S2. Absent: diastolic murmur, gallop, rubs, systolic murmur - GI/Abdominal GI/Abdominal exam: Present: normal bowel sounds, soft, no peritoneal signs. Absent: distended, tenderness - Neurological Exam Neurological exam: Present: CN II-XII intact, oriented X3, no focal deficits. Absent: pronater drift, facial droop, speech deficit Internal Medicine: Result - Labs CBC & Chem 7: 12/28/17 08:41 12/26/17 06:50 Labs: Short CBC 12/28/17 Range/Units 08:41 WBC 11.8 H (4.3-11.1) K/mcL Hgb 13.2 (11.5-15.4) g/dL Hct 38.1 (35.3-44.9) % Plt Count 188 (140-400) K/mcL Neutrophils # 10.2 H (1.6-8.9) K/mcL - ABG Interpretation ABG results: ABG ABG pH 7.39 pH Units (7.32-7.45) 12/25/17 00:42 ABG pCO2 41 mmHg (35-45) 12/25/17 00:42 ABG pO2 98 mmHg (85-104) 12/25/17 00:42 ABG O2 Saturation 98 % (95-98) 12/25/17 00:42 Consult Discharge Plan - Plan Referrals: NONE,PCP [Primary Care Provider] -
--- NOTE | 2017-12-28 14:45 | Discharge Summary ---
- NOTES TO OUTPATIENT PROVIDER Notes to Outpatient Provider: Follow-up with family doctor in one week, follow- up with pulmonary in 1 week Orders not resulted at time of discharge: Pending orders 12/28/17 11:12 XR chest 2V [XR] Routine Date of Encounter: 12/28/17 Time of Encounter: 14:42 - Discharge Diagnosis (1) Asthma exacerbation Priority: Primary Status: Resolved Qualifiers: Asthma severity: mild Asthma persistence: intermittent Qualified Code(s) : J45.21 - Mild intermittent asthma with (acute) exacerbation Code(s): J45.901 - Unspecified asthma with (acute) exacerbation (2) Bronchitis Priority: Primary Status: Acute (3) Opioid use with withdrawal Priority: Primary Status: Acute Hospital course: Ms. Gaitan is a 27-year-old female who presented to the emergency department with a chief complaint of shortness of breath . She was somnolent but easily arousable. She falls sleep in midsentence, however. She has significant respiratory distress and is in status asthmaticus. Given her somnolence and severe respiratory distress, Arterial blood gas did reveal normal findings. Will continue with aggressive respiratory support in the form of scheduled aerosols, continuous aerosol for one hour, oxygen as needed, and close critical care monitoring. she had BiPAP overnight , continue to monitor patient overnight , patient weaned off from BiPAP gradually and was placed on nonrebreather mask to nasal cannula. Once patient is stable patient transferred to telemetry. With her significant productive cough with yellowish greenish sputum and patient was placed empirically on Zosyn and doxycycline to cover healthcare care associated pneumonia with her current hospitalization and her comorbidity. Patient was feeling better gradually over last 48 hour. Patient weaned off oxygen ,she was on room air . Patient refused any more antibiotic IV, she had IV placed twice and different arm and she will continue complaining she cannot tolerate any medication in her IV and she will only take medication orally. I had long discussion with patient counseling about respiratory failure counseling about lung abscess counseling about the worsening of her condition, patient understands risk and benefit and she verbalizes it and she wanted to go home on oral antibiotic, I had long discussion about aerosol treatment about incentive spirometry, room. Patient seen twice today counseling about the plan and finally patient insisted to leave or she will leave AMA. Patient was given prescription for Augmentin as well as doxycycline instructions follow-up with family doctor as an outpatient and we to follow-up with pulmonary for optimizing treatment for her asthma. Counseling patient about drug use counseling about exterminator complication at counseling about risk of Discharge discussed with: patient - Time Spent with Patient Total time spent providing and/or coordinating discharge services: Greater than 30 minutes - Discharge Medications Prescriptions: Albuterol Neb [Proventil Neb] 2.5 mg IH Q4HR PRN #360 inhsol PRN Reason: Shortness Of Breath Amoxicillin/Clavulanate [Augmentin] 875 mg PO BIDWM #20 tablet Budesonide/Formoterol 160/4.5 [Symbicort 160/4.5] 2 puff IH BIDR #1 inhaler Cyanocobalamin (B-12) [Vitamin B12] 1,000 mcg PO DAILY #90 tablet Doxycycline 100 mg PO BID #20 capsule Ergocalciferol (VITAMIN D2) [Drisdol (50,000 Unit)] 50,000 unit PO QWEEK #15 capsule GuaiFENesin ER [Mucinex] 1,200 mg PO BID #40 tbbp.12hr Montelukast [Singulair] 10 mg PO DAILY #30 tablet predniSONE [PredniSONE] 20 mg PO AD #20 tablet Thiamine (B-1) [Vitamin B-1] 100 mg PO DAILY #90 tablet Home Medications: Albuterol Neb [Proventil Neb] 2.5 mg IH Q4HR PRN #360 inhsol 12/28/17 [Rx] Amoxicillin/Clavulanate [Augmentin] 875 mg PO BIDWM #20 tablet 12/28/17 [Rx] Budesonide/Formoterol 160/4.5 [Symbicort 160/4.5] 2 puff IH BIDR #1 inhaler [Rx] Cyanocobalamin (B-12) [Vitamin B12] 1,000 mcg PO DAILY #90 tablet 12/28/17 [Rx] Doxycycline 100 mg PO BID #20 capsule 12/28/17 [Rx] Ergocalciferol (VITAMIN D2) [Drisdol (50,000 Unit)] 50,000 unit PO QWEEK #15 capsule 12/28/17 [Rx] GuaiFENesin ER [Mucinex] 1,200 mg PO BID #40 tbbp.12hr 12/28/17 [Rx] Montelukast [Singulair] 10 mg PO DAILY #30 tablet 12/28/17 [Rx] Thiamine (B-1) [Vitamin B-1] 100 mg PO DAILY #90 tablet 12/28/17 [Rx] predniSONE [PredniSONE] 20 mg PO AD #20 tablet 12/28/17 [Rx] Allergies/Adverse Reactions: 3 Allergy/AdvReac Type Severity Reaction Status Date / Time No Known Allergies Allergy Verified 06/21/17 11:09 Date of admission: 12/25/17 02:58 Primary care physician: PCP NONE Consults: 12/25/17 06:53 Consult to Pulmonology [CONS] Stat Consulting Provider: [facility] Reason for Consult: severe asthma, heroin withdrawal Time Notified: 06:53 Call Completed: Yes Discharging clinician: Mikey Burgos Anticipated date of discharge: 12/28/17 - Constitutional Vitals: Temp Pulse Resp BP Pulse Ox 98.3 F 84 16 138/87 96 12/28/17 09:55 12/28/17 09:55 12/28/17 09:55 12/28/17 09:55 12/28/17 09:55 General appearance: Present: mild distress, A&O X 3 (but is intermittently somnolent and responds to voice), no acute distress - Patient Status Disposition: Home, Self-Care Condition: Good Functional capacity at discharge: independent ambulation Overall status at discharge: patient is not back to baseline - Discharge Instructions Instructions: Asthma (DC) Follow Up With: NONE,PCP [Primary Care Provider] - - Diet and Activity Activity: resume usual activities as tolerated Diet: regular diet
== END 2017-12-28 15:36 | disposition home or self-care (01) | DRG 141 ==
LOC: EMEROO 21:08 → ICNU 21:08 → 3NENU 12-27 15:24
PROVIDERS: ADMIT Family Medicine; ATTEND Family Medicine